=== PATIENT | female | born 1935 | race Caucasian/White ===

== ENCOUNTER 2019-07-03 11:57 | Inpatient (IN) | payer MEDICARE ==
[~2019-07-03] VITALS: Ht 160 cm; Wt 92.2 kg
[2019-07-03] MEDS ORDERED: guaiFENesin 200 MG TAB PO PRN (13:45)
[2019-07-03] MEDS ORDERED: MIRALAX *UNIT DOSE* 17GM PACKET PO PRN (13:45)
[2019-07-03] MEDS ORDERED: IPRATROPIUM 0.5MG/ALBUTEROL 2.5MG INH SOL UD 3ML (DUONEB)(J7620) NEB PRN (13:45)
--- NOTE | 2019-07-03 15:17 | HPEPDOC ---
Program Therapist Note DATE OF ADMISSION: DATE OF SERVICE: TIME OF ADMISSION: Please refer to physician's admission order. SOURCE OF ADMISSION INFORMATION: [facility] CHIEF COMPLAINT: hemorrhagic stroke HISTORY OF PRESENT ILLNESS: 84F pmh HTN, breast cancer, lung cancer, GERD, diverticulosis presented to [facility] 06[facility] with left sided weakness and facial droop with CT showing right basal ganglia bleed and sbp>200. She declined further neurosurgic al evaluation so was not transferred to a higher level of care, but was treated with iv and oral anti-hypertensives. Her bleed was monitored with serial ct scans which showed no change in hematoma size or mass effect. A formal speech eval was not performed and patient refused puree diet despite being counseled on risk of aspiration. She developed bradycardia for which her home dose of atenolol was discontinued and she was started on DVT prophylaxis. She was noted to have a sacral ulcer thought to be due to urinary/bowel incontinence. She was evaluated by therapy, found to have impairments in mobility and ADLs and deemed medically appropriate for discharge to ARU on 07-03-19. REVIEW OF SYSTEMS: The following is a completed review of systems and has been reviewed. Review of systems otherwise unremarkable. PAIN: Patient self reports no pain EYES: No recent vision changes EARS, NOSE, & THROAT: No throat pain, denies dysphagia CARDIOVASCULAR: denies chest pain or palpitations PULMONARY: Denies shortness of breath, +chronic cough GASTROINTESTINAL: Denies constipation/diarrhea GENITOURINARY: denies dysruia, however +incontinence MUSCULOSKELETAL: left sided paresis NEUROLOGICAL: left sided paresis HEMATOLOGICAL: denies easy bruising SKIN: sacral ulcer PSYCHIATRIC: Unremarkable All other review of systems found to be negative. PAST MEDICAL HISTORY: as per HPI PAST SURGICAL HISTORY: Appendectomy, cholecystectomy, left hip replacement, pneumonectomy, hysterectomy ALLERGIES: Please see below. MEDICATIONS: Please see below. FAMILY HISTORY: Lung disease SOCIAL HISTORY: no etoh/illicit drugs/smoking DIET: level 2 and nectar PHYSICAL EXAMINATION: VITAL SIGNS: Please see below. GENERAL: Pleasant and cooperative. No acute distress. obese HEENT: PERRL. Extraocular movements intact. Clear conjunctiva CARDIOVASCULAR: Regular rate and rhythm. No murmurs, rubs, or gallops LUNGS: Clear to auscultation bilaterally. No wheezes. No rhonchi ABDOMEN: Soft, nontender, nondistended. Positive bowel sounds. Normal active bowel sounds NEUROLOGICAL: Alert and oriented times three. Cranial nerves II through XII grossly intact. Sensation grossly intact to light touch in all 4 limbs, with extinction to touch on the left EXTREMITIES: 5\5 strength right upper extremities. 3/5 strength left UE 4-\5 strength right lower extremity. 3/5 strength in left lower extremity. +bilat LE edema with mild erythema of anterior calves SKIN: sacral ulcer in gluteal fold (healed) LABORATORY DATA: Please see below. IMAGING:Imaging documentation personally reviewed by record FUNCTIONAL STATUS: Premorbid: Modified Independent with all activities of daily life as well as mobility with RW On Admission:Mod assist for bed mobility, functional transfers, ambulation, dressing, total for toileting GOALS:Modified independent for bed mobility, functional transfers, ambulation household distances, dressing, toileting, bathing ASSESSMENT:84-year-old F with past medical history of HTN who presents status post right basal ganglia hemorrhagic stroke PLAN: 1. Rehab- PT/OT advance gait and ADL impairments, strenghthen/stretch/maintain ROM all 4 limbs, evaluate for AFO, heel offloaders bilat LE given lymphedema RABBET OPERATOR- swallow and cog- will start patient on level 2 and nectar until seen by RABBET OPERATOR inhouse as no formal swallow eval performed at prior hospital 2. Neuro: s/p right basal ganglia hemorrhagic stroke-c/u statin and BP control for secondary stroke prevention -prozac for motor recovery 3. CArdiac: hx of HTN c/u amlodipine and Cozaar, atenolol on hold due to recent bradycardia -medicine consult to assist in overall management 4. Resp: encourage incentive spirometry, duonebs and and guaifenesin prn 5. GI ppx: protonix 6. DVT ppx: heparin and teds 7. Skin: barrier cream and turn q2h in bed, heel offloaders and Acewraps for lymphedema, optifoam to heels for prevention 8. Pain: tylenol prn 9. Dispo: TBD POST ADMISSION PHYSICIAN EVALUATION: Medical and functional status: Description of medical status, medical assessment: As above. Rehabilitation diagnosis and current and prior cold morbid medical conditions as above. Risk of complications and plans to mitigate them as above. Description of functional status current status is as above. Prior status as above. Status compared to preadmission: There are no clinically significant differences between the patient's current status and the information described on the preadmission screening document. Treatment plan anticipated: Treatment plan is as described above. Required disciplines including physical therapy, occupational therapy, others as noted above. Intensity of services: 3 hours a day, 6 days a week. Special considerations: There are no specific special or safety considerations that would likely preclude immediate implementation of an intensive rehabilitation program or subsequently influence the plan of care. ATTESTATION: Considering all the information above, it is my best judgment that this patient requires intensive rehabilitation therapy as described above and an inpatient hospital environment due to the complexity of nursing, medical, and rehabilitation needs required by the patient. Furthermore, this patient can reasonably be expected to participate in an benefit from an inpatient rehabilitation stay with an interdisciplinary team approach to the delivery of rehabilitation care under the direction and supervision of rehabilitation physician. PROGNOSIS: good ESTIMATED LENGTH OF STAY:18-21 days. PROJECTED DISCHARGE DESTINATION: Home with family support and any durable medical equipment required to increase functional safety and mobility. TIME SPENT COUNSELING AND COORDINATING INITIAL CARE: Greater than 70 minutes. Vital Signs Vital Signs Date Time Temp Pulse Resp B/P (MAP) Pulse Ox O2 Delivery O2 Flow Rate FiO2 5/20/20 15:30 98.0 70 18 154/80 (104) 94 Room Air Home Medications Scheduled Amlodipine Besylate (Amlodipine Besylate) 5 Mg Tablet, 10 MG PO DAILY, (Reported) Cyanocobalamin (Cyanocobalamin Injection) 1,000 Mcg/1 Ml Vial, 1,000 MCG IM QMONTH, (Reported) Esomeprazole Magnesium (Esomeprazole Magnesium) 20 Mg Capsule.dr, 40 MG PO DAILY, (Reported) Heparin Sodium,Porcine/Pf (Heparin 2,000 Unit/2 ml Vial) 1,000 Unit/1 Ml Vial, 5,000 UNIT SC BID, (Reported) STARTED AT [facility] Losartan Potassium (Losartan Potassium) 50 Mg Tablet, 50 MG PO DAILY, (Reported) Sennosides/Docusate Sodium (Senna-S Tablet) 1 Each Tablet, 2 TAB PO BID, (Reported) Scheduled PRN Acetaminophen (Acetaminophen) 325 Mg Tablet, 650 MG PO Q4H PRN for PAIN, (Reported) Dextran/Hypromellose (Genteal Tears 0.1%-0.3% Drop) 15 Ml Drops, 1 DROP OU Q4H PRN for DRY EYES, (Reported) Allergies Coded Allergies: cephalexin (Verified Allergy, Unknown, TONGUE SWELLS, 07/03/19) A-FIB/CHADSVASC A-FIB History Current/History of A-Fib/PAF?: No Current PO Anticoag Therapy: No RAN ESPINOZA MD July 03, 2019 15:17
[2019-07-03 15:30] VITALS: BP 154/80
[2019-07-03] MEDS: guaiFENesin 200 MG TAB PO SCH ×2 (16:00→21:05)
[2019-07-03] MEDS ORDERED: SENN-23 PO (16:05)
[2019-07-03] MEDS ORDERED: CYAN1000VL IM (16:05)
[2019-07-03] MEDS ORDERED: ESOM0.1C PO (16:05)
[2019-07-03] MEDS ORDERED: AMLO5TAB6 PO (16:05)
[2019-07-03] MEDS ORDERED: LOSA50TA88 PO (16:05)
[2019-07-03] MEDS ORDERED: ACET-908 PO (16:07)
[2019-07-03] MEDS ORDERED: [UNRECOGNIZED DRUG - CODE] SC (16:07)
[2019-07-03] MEDS ORDERED: GENT1SOL16 OU (16:08)
[2019-07-03] MEDS: ACETAMINOPHEN TAB 650MG DOSE (2X325MG) PO PRN ×2 (16:45→21:09)
[2019-07-03] MEDS: REMEDY PHYTOPLEX Z-GUARD PASTE 113GM TUBE (FROM STOREROOM PRODUCT) TOP SCH ×2 (16:48→21:07)
[2019-07-03] MEDS ORDERED: POLYVINYL ALCOHOL OPHTH SOLN 15 ML(LIQUITEARS) OU PRN (17:00)
[2019-07-03] MEDS: IPRATROPIUM 0.5MG/ALBUTEROL 2.5MG INH SOL UD 3ML (DUONEB)(J7620) NEB SCH ×2 (17:12→20:04)
[2019-07-03 20:02] VITALS: BP 156/82
[2019-07-03] MEDS ORDERED: SENNA 8.6 MG TAB (SENOKOT) PO SCH (21:00)
[2019-07-03] MEDS: NYSTATIN 100,000 UNITS/GM TOPICAL PWD 15 GM TOP SCH (21:05)
[2019-07-03] MEDS: DOCUSATE SODIUM 100 MG CAP PO SCH (21:05)
[2019-07-03] MEDS: HEPARIN SOD (PORCINE) 5000UNITS/ML VIAL (J1644 PER 1000UNITS) SC SCH (21:06)
[2019-07-04] MEDS: REMEDY PHYTOPLEX Z-GUARD PASTE 113GM TUBE (FROM STOREROOM PRODUCT) TOP SCH ×3 (05:34→18:50)
[2019-07-04 06:00] VITALS: BP 126/71
[2019-07-04 06:32] LABS: BASO # 0.1 10^3/uL (0.0-0.2); BASO % 1.2 % (0.0-1.0); EOS # 0.2 10^3/uL (0.0-0.5); EOS % 2.9 % (0.0-3.0); HEMATOCRIT 40.5 % (36.0-47.0); HEMOGLOBIN 13.6 g/dl (12.0-15.5); LYMPH # 1.6 10^3/uL (1.5-5.0); LYMPH % 30.1 % (24.0-44.0); MEAN CORPUSCULAR HEMOGLOBIN 31.2 pg (27.0-33.0); MEAN CORPUSCULAR HGB CONC 33.6 g/dl (32.0-36.5); MEAN CORPUSCULAR VOLUME 92.9 fl (80.0-96.0); MONO # 0.5 10^3/uL (0.0-0.8); MONO % 10.4 % (0.0-5.0); NEUTROPHILS # 2.9 10^3/uL (1.5-8.5); PLATELET COUNT, AUTOMATED 149 10^3/uL (150-450); RED BLOOD COUNT 4.36 10^6/uL (4.00-5.40); WHITE BLOOD COUNT 5.2 10^3/uL (4.0-10.0)
[2019-07-04 06:58] LABS: ALT/SGPT 21 U/L (12-78); BILIRUBIN,TOTAL 0.6 MG/DL (0.2-1.0); BLOOD UREA NITROGEN 24 MG/DL (7-18); CALCIUM LEVEL 8.8 MG/DL (8.8-10.2); CARBON DIOXIDE LEVEL 23 MEQ/L (21-32); CHLORIDE LEVEL 109 MEQ/L (98-107); CREATININE FOR GFR 0.74 MG/DL (0.55-1.30); GLOMERULAR FILTRATION RATE > 60.0 (>32); GLUCOSE, FASTING 95 MG/DL (70-100); POTASSIUM SERUM 3.9 MEQ/L (3.5-5.1); SODIUM LEVEL 141 MEQ/L (136-145); TOTAL PROTEIN 6.2 GM/DL (6.4-8.2)
[2019-07-04] MEDS: IPRATROPIUM 0.5MG/ALBUTEROL 2.5MG INH SOL UD 3ML (DUONEB)(J7620) NEB SCH ×3 (07:04→19:44)
[2019-07-04] MEDS: FOLIC ACID 1 MG TAB PO SCH (08:36)
[2019-07-04] MEDS: guaiFENesin 200 MG TAB PO SCH ×3 (08:36→20:15)
[2019-07-04] MEDS: DOCUSATE SODIUM 100 MG CAP PO SCH (08:36)
[2019-07-04] MEDS: PANTOPRAZOLE 40MG TAB (PROTONIX) PO SCH (08:36)
[2019-07-04] MEDS: LOSARTAN 50MG TABLET PO SCH (08:37)
[2019-07-04] MEDS: amLODIPine 10 MG TAB PO SCH (08:37)
[2019-07-04] MEDS: FLUoxetine 20 MG CAP PO SCH (08:37)
[2019-07-04] MEDS: ACETAMINOPHEN TAB 650MG DOSE (2X325MG) PO PRN ×4 (08:38→20:17)
[2019-07-04] MEDS: HEPARIN SOD (PORCINE) 5000UNITS/ML VIAL (J1644 PER 1000UNITS) SC SCH ×2 (08:38→20:15)
[2019-07-04] MEDS: NYSTATIN 100,000 UNITS/GM TOPICAL PWD 15 GM TOP SCH ×2 (08:38→20:17)
[2019-07-04] MEDS ORDERED: CYANOCOBALAMIN 500 MCG TAB PO SCH (09:00)
--- NOTE | 2019-07-04 09:57 | IPNPDOC ---
PM&R Progress Note DATE OF SERVICE: July 04, 2019 Nurse Recruiter Progress Note Subjective: Patient reporting she slept well and continues to try using her left arm with its residual strength. REVIEW OF SYSTEMS: The following is a completed review of systems and has been reviewed. Review of systems otherwise unremarkable. PAIN: Patient self reports no pain EYES: No recent vision changes EARS, NOSE, & THROAT: No throat pain, denies dysphagia CARDIOVASCULAR: denies chest pain or palpitations PULMONARY: Denies shortness of breath, +chronic cough GASTROINTESTINAL: Denies constipation/diarrhea GENITOURINARY: denies dysruia, however +incontinence MUSCULOSKELETAL: left sided paresis NEUROLOGICAL: left sided paresis HEMATOLOGICAL: denies easy bruising SKIN: sacral ulcer PSYCHIATRIC: Unremarkable All other review of systems found to be negative. PHYSICAL EXAMINATION: VITAL SIGNS: Please see below. GENERAL: Pleasant and cooperative. No acute distress. obese HEENT: PERRL. Extraocular movements intact. Clear conjunctiva CARDIOVASCULAR: Regular rate and rhythm. No murmurs, rubs, or gallops LUNGS: Clear to auscultation bilaterally. No wheezes. No rhonchi ABDOMEN: Soft, nontender, nondistended. Positive bowel sounds. Normal active bowel sounds NEUROLOGICAL: Alert and oriented times three. Cranial nerves II through XII grossly intact. Sensation grossly intact to light touch in all 4 limbs, with extinction to touch on the left EXTREMITIES: 5\5 strength right upper extremities. 3/5 strength left UE 4-\5 strength right lower extremity. 3/5 strength in left lower extremity. +bilat LE edema with mild erythema of anterior calves SKIN: sacral ulcer in gluteal fold (healed) ASSESSMENT:84-year-old F with past medical history of HTN who presents status post right basal ganglia hemorrhagic stroke PLAN: 1. Rehab- PT/OT advance gait and ADL impairments, strenghthen/stretch/maintain ROM all 4 limbs, evaluate for AFO, heel offloaders bilat LE given lymphedema SHIRRING MACHINE OPERATOR AUTOMATIC- swallow and cog- will start patient on level 2 and nectar until seen by SHIRRING MACHINE OPERATOR AUTOMATIC inhouse as no formal swallow eval performed at prior hospital 2. Neuro: s/p right basal ganglia hemorrhagic stroke-c/u statin and BP control for secondary stroke prevention -prozac for motor recovery 3. CArdiac: hx of HTN c/u amlodipine and Cozaar, atenolol on hold due to recent bradycardia, will c/u Lasix for bilat edema and elevated BPs and low dose metoprolol with parameters -medicine consult to assist in overall management 4. Resp: encourage incentive spirometry, duonebs and and guaifenesin 5. GI ppx: protonix 6. DVT ppx: heparin and teds 7. Skin: barrier cream and turn q2h in bed, heel offloaders and Acewraps for lymphedema, optifoam to heels for prevention 8. Pain: tylenol prn 9. Dispo: TBD Allergies Coded Allergies: cephalexin (Verified Allergy, Unknown, TONGUE SWELLS, 07/03/19) Vital Signs Vital Signs Date Time Temp Pulse Resp B/P (MAP) Pulse Ox O2 Delivery O2 Flow Rate FiO2 07/04/19 08:37 172/78 07/04/19 06:00 97.9 73 17 95 Room Air Laboratory Data CBC/BMP Laboratory Tests 07/04/19 06:15 Labs 24H Laboratory Tests 2 07/03/19 15:25: Coronavirus (COVID-19)(PCR) NEGATIVE 07/04/19 06:15: Immature Granulocyte % (Auto) 0.4, Neutrophils (%) (Auto) 55.0, Lymphocytes (%) (Auto) 30.1, Monocytes (%) (Auto) 10.4H, Eosinophils (%) (Auto) 2.9, Basophils (%) (Auto) 1.2H, Neutrophils # (Auto) 2.9, Lymphocytes # (Auto) 1.6, Monocytes # (Auto) 0.5, Eosinophils # (Auto) 0.2, Basophils # (Auto) 0.1, Nucleated Red Blood Cells % (auto) 0.0, Anion Gap 9, Glomerular Filtration Rate > 60.0, Calciu m Level 8.8, Total Bilirubin 0.6, Aspartate Amino Transf (AST/SGOT) 15, Alanine Aminotransferase (ALT/SGPT) 21, Alkaline Phosphatase 99, Total Protein 6.2L, Albumin 3.0L, Albumin/Globulin Ratio 0.9L Current Medications Current Medications Current Medications Medications (Trade) Dose Ordered Sig/Brenden Route PRN Reason Start Time Stop Time Status Last Admin Dose Admin Acetaminophen (Tylenol Tab) 650 mg Q4HP PRN PO fever/MILD PAIN (PS 1-4) 07/03/19 13:45 07/04/19 08:38 Albuterol/ Ipratropium (Duoneb (Ipr 0.5mg/Alb 2.5mg)) 3 ml Q2HP PRN NEB SOB/WHEEZING 07/03/19 13:45 07/03/19 16:00 DC Albuterol/ Ipratropium (Duoneb (Ipr 0.5mg/Alb 2.5mg)) 3 ml RTID NEB 07/03/19 14:00 07/04/19 07:04 Amlodipine Besylate (Norvasc) 10 mg DAILY PO 07/04/19 09:00 07/04/19 08:37 Artificial Tears (Akwa Tears) 2 drop QID PRN OU DRY EYES 07/03/19 17:00 Cyanocobalamin (Vitamin B12) 1,000 mcg DAILY PO 07/04/19 09:00 07/03/19 16:39 DC Docusate Sodium (Colace) 100 mg BID PO 07/03/19 21:00 07/04/19 08:36 Fluoxetine HCl (PROzac) 20 mg DAILY PO 07/04/19 09:00 07/04/19 08:37 Folic Acid (Folic Acid) 1 mg DAILY PO 07/04/19 09:00 07/04/19 08:36 Guaifenesin (Robitussin Tab) 400 mg Q4HP PRN PO COUGH 07/03/19 13:45 07/03/19 16:00 DC Guaifenesin (Robitussin Tab) 400 mg TID PO 07/03/19 16:00 07/04/19 08:36 Heparin Sodium (Porcine) (Heparin) 5,000 units Q12H SC 07/03/19 21:00 07/04/19 08:38 Home Med (Med Rec Complete!) ASDIRECTED XX 07/03/19 16:15 07/03/19 16:14 DC Losartan Potassium (Cozaar) 50 mg DAILY PO 07/04/19 09:00 07/04/19 08:37 Nystatin (Mycostatin Powder, Nystop) apply to groin BID TOP 07/03/19 21:00 07/04/19 08:38 Pantoprazole Sodium (Protonix) 40 mg DAILY PO 07/04/19 09:00 07/04/19 08:36 Polyethylene Glycol (Miralax) 1 pkt DAILY PRN PO CONSTIPATION 07/03/19 13:45 Senna (Senokot) 1 tab Q PO 07/03/19 21:00 07/03/19 21:05 RAN ESPINOZA MD July 04, 2019 09:57
[2019-07-04] MEDS ORDERED: METOPROLOL TART 25 MG TABLET PO SCH (10:00)
[2019-07-04] MEDS: METOPROLOL TART 12.5 MG PER 1/2 TAB PO SCH ×2 (11:03→20:16)
[2019-07-04] MEDS: FUROSEMIDE 20 MG TAB PO SCH (11:04)
[2019-07-04 14:00] VITALS: BP 120/62
[2019-07-04] MEDS ORDERED: DOCUSATE SODIUM 100 MG CAP PO PRN (16:00)
[2019-07-04] MEDS ORDERED: SENNA 8.6 MG TAB (SENOKOT) PO PRN (16:00)
[2019-07-04] MEDS ORDERED: LOPERAMIDE 2 MG CAPLET PO PRN (16:00)
[2019-07-04 20:00] VITALS: BP 142/86
[2019-07-05] MEDS: REMEDY PHYTOPLEX Z-GUARD PASTE 113GM TUBE (FROM STOREROOM PRODUCT) TOP SCH ×5 (00:17→23:42)
[2019-07-05 06:00] VITALS: BP 145/70
[2019-07-05] MEDS: IPRATROPIUM 0.5MG/ALBUTEROL 2.5MG INH SOL UD 3ML (DUONEB)(J7620) NEB SCH ×4 (07:05→20:00)
[2019-07-05] MEDS: guaiFENesin 200 MG TAB PO SCH ×3 (08:46→20:01)
[2019-07-05] MEDS: LOSARTAN 50MG TABLET PO SCH (08:46)
[2019-07-05] MEDS: FLUoxetine 20 MG CAP PO SCH (08:46)
[2019-07-05] MEDS: METOPROLOL TART 12.5 MG PER 1/2 TAB PO SCH ×2 (08:46→20:28)
[2019-07-05] MEDS: PANTOPRAZOLE 40MG TAB (PROTONIX) PO SCH (08:46)
[2019-07-05] MEDS: FOLIC ACID 1 MG TAB PO SCH (08:46)
[2019-07-05] MEDS: amLODIPine 10 MG TAB PO SCH (08:46)
[2019-07-05] MEDS: HEPARIN SOD (PORCINE) 5000UNITS/ML VIAL (J1644 PER 1000UNITS) SC SCH ×2 (08:47→20:29)
[2019-07-05] MEDS: NYSTATIN 100,000 UNITS/GM TOPICAL PWD 15 GM TOP SCH ×2 (08:47→20:29)
[2019-07-05] MEDS: FUROSEMIDE 20 MG TAB PO SCH (08:47)
[2019-07-05] MEDS: ACETAMINOPHEN TAB 650MG DOSE (2X325MG) PO PRN ×2 (09:50→21:23)
[2019-07-05] MEDS: LIDOCAINE 5% (LIDODERM) PATCH TD SCH (11:44)
[2019-07-05 14:00] VITALS: BP 140/72
[2019-07-05 20:00] VITALS: BP 142/70
[2019-07-05] MEDS: **NOTE PATIENT COMMENT** MISC XX SCH (20:29)
[2019-07-06] MEDS: ACETAMINOPHEN TAB 650MG DOSE (2X325MG) PO PRN ×3 (02:13→22:13)
[2019-07-06] MEDS: REMEDY PHYTOPLEX Z-GUARD PASTE 113GM TUBE (FROM STOREROOM PRODUCT) TOP SCH ×4 (05:50→21:31)
[2019-07-06] MEDS: IPRATROPIUM 0.5MG/ALBUTEROL 2.5MG INH SOL UD 3ML (DUONEB)(J7620) NEB SCH ×3 (08:34→21:24)
[2019-07-06] MEDS: amLODIPine 10 MG TAB PO SCH (10:07)
[2019-07-06] MEDS: FOLIC ACID 1 MG TAB PO SCH (10:07)
[2019-07-06] MEDS: METOPROLOL TART 12.5 MG PER 1/2 TAB PO SCH ×2 (10:07→20:23)
[2019-07-06] MEDS: PANTOPRAZOLE 40MG TAB (PROTONIX) PO SCH (10:07)
[2019-07-06] MEDS: guaiFENesin 200 MG TAB PO SCH ×3 (10:07→20:11)
[2019-07-06] MEDS: LOSARTAN 50MG TABLET PO SCH (10:08)
[2019-07-06] MEDS: FUROSEMIDE 20 MG TAB PO SCH (10:08)
[2019-07-06] MEDS: HEPARIN SOD (PORCINE) 5000UNITS/ML VIAL (J1644 PER 1000UNITS) SC SCH ×2 (10:09→20:25)
[2019-07-06] MEDS: FLUoxetine 20 MG CAP PO SCH (10:09)
[2019-07-06] MEDS: LIDOCAINE 5% (LIDODERM) PATCH TD SCH (10:10)
[2019-07-06] MEDS: NYSTATIN 100,000 UNITS/GM TOPICAL PWD 15 GM TOP SCH ×2 (10:10→20:24)
[2019-07-06 14:00] VITALS: BP 164/80
[2019-07-06 20:00] VITALS: BP 144/62
[2019-07-06] MEDS: **NOTE PATIENT COMMENT** MISC XX SCH (20:26)
[2019-07-07] MEDS: REMEDY PHYTOPLEX Z-GUARD PASTE 113GM TUBE (FROM STOREROOM PRODUCT) TOP SCH ×4 (05:44→20:33)
[2019-07-07 06:46] VITALS: BP 138/66
[2019-07-07] MEDS: IPRATROPIUM 0.5MG/ALBUTEROL 2.5MG INH SOL UD 3ML (DUONEB)(J7620) NEB SCH ×3 (07:24→19:29)
[2019-07-07] MEDS: LIDOCAINE 5% (LIDODERM) PATCH TD SCH (08:11)
[2019-07-07] MEDS: FUROSEMIDE 20 MG TAB PO SCH (08:12)
[2019-07-07] MEDS: FOLIC ACID 1 MG TAB PO SCH (08:12)
[2019-07-07] MEDS: FLUoxetine 20 MG CAP PO SCH (08:12)
[2019-07-07] MEDS: PANTOPRAZOLE 40MG TAB (PROTONIX) PO SCH (08:12)
[2019-07-07] MEDS: guaiFENesin 200 MG TAB PO SCH ×3 (08:12→20:18)
[2019-07-07] MEDS: HEPARIN SOD (PORCINE) 5000UNITS/ML VIAL (J1644 PER 1000UNITS) SC SCH ×2 (08:12→20:17)
[2019-07-07] MEDS: NYSTATIN 100,000 UNITS/GM TOPICAL PWD 15 GM TOP SCH ×2 (08:13→20:18)
[2019-07-07] MEDS: METOPROLOL TART 12.5 MG PER 1/2 TAB PO SCH ×2 (08:27→20:17)
[2019-07-07] MEDS: LOSARTAN 50MG TABLET PO SCH (08:27)
[2019-07-07] MEDS: amLODIPine 10 MG TAB PO SCH (08:27)
[2019-07-07 14:00] VITALS: BP 118/68
[2019-07-07] MEDS: ACETAMINOPHEN TAB 650MG DOSE (2X325MG) PO PRN (17:34)
[2019-07-07 19:39] VITALS: BP 147/64
[2019-07-07] MEDS: **NOTE PATIENT COMMENT** MISC XX SCH (20:19)
[2019-07-08] MEDS: REMEDY PHYTOPLEX Z-GUARD PASTE 113GM TUBE (FROM STOREROOM PRODUCT) TOP SCH ×3 (05:27→17:44)
[2019-07-08 05:59] VITALS: BP 145/66
[2019-07-08] MEDS: IPRATROPIUM 0.5MG/ALBUTEROL 2.5MG INH SOL UD 3ML (DUONEB)(J7620) NEB SCH ×4 (07:13→19:21)
[2019-07-08 07:44] LABS: BASO # 0.1 10^3/uL (0.0-0.2); EOS # 0.2 10^3/uL (0.0-0.5); EOS % 4.8 % (0.0-3.0); HEMATOCRIT 38.4 % (36.0-47.0); HEMOGLOBIN 12.5 g/dl (12.0-15.5); LYMPH # 1.5 10^3/uL (1.5-5.0); LYMPH % 29.8 % (24.0-44.0); MEAN CORPUSCULAR HEMOGLOBIN 30.2 pg (27.0-33.0); MEAN CORPUSCULAR HGB CONC 32.6 g/dl (32.0-36.5); MEAN CORPUSCULAR VOLUME 92.8 fl (80.0-96.0); MONO # 0.6 10^3/uL (0.0-0.8); MONO % 10.9 % (0.0-5.0); NEUTROPHILS # 2.7 10^3/uL (1.5-8.5); NEUTROPHILS % 52.9 % (36.0-66.0); PLATELET COUNT, AUTOMATED 165 10^3/uL (150-450); RED BLOOD COUNT 4.14 10^6/uL (4.00-5.40)
[2019-07-08] MEDS: PANTOPRAZOLE 40MG TAB (PROTONIX) PO SCH (07:48)
[2019-07-08] MEDS: LIDOCAINE 5% (LIDODERM) PATCH TD SCH (07:48)
[2019-07-08] MEDS: amLODIPine 10 MG TAB PO SCH (07:48)
[2019-07-08] MEDS: HEPARIN SOD (PORCINE) 5000UNITS/ML VIAL (J1644 PER 1000UNITS) SC SCH ×2 (07:48→20:22)
[2019-07-08] MEDS: FOLIC ACID 1 MG TAB PO SCH (07:49)
[2019-07-08] MEDS: METOPROLOL TART 12.5 MG PER 1/2 TAB PO SCH ×2 (07:49→20:23)
[2019-07-08] MEDS: FUROSEMIDE 20 MG TAB PO SCH (07:49)
[2019-07-08] MEDS: LOSARTAN 50MG TABLET PO SCH (07:49)
[2019-07-08] MEDS: FLUoxetine 20 MG CAP PO SCH (07:50)
[2019-07-08] MEDS: guaiFENesin 200 MG TAB PO SCH ×3 (07:50→20:23)
[2019-07-08] MEDS: NYSTATIN 100,000 UNITS/GM TOPICAL PWD 15 GM TOP SCH ×2 (07:51→20:23)
[2019-07-08 08:02] LABS: BLOOD UREA NITROGEN 29 MG/DL (7-18); CALCIUM LEVEL 8.8 MG/DL (8.8-10.2); CARBON DIOXIDE LEVEL 24 MEQ/L (21-32); CHLORIDE LEVEL 109 MEQ/L (98-107); CREATININE FOR GFR 0.83 MG/DL (0.55-1.30); GLOMERULAR FILTRATION RATE > 60.0 (>32); GLUCOSE, FASTING 101 MG/DL (70-100); POTASSIUM SERUM 3.4 MEQ/L (3.5-5.1); SODIUM LEVEL 140 MEQ/L (136-145)
[2019-07-08] MEDS: ACETAMINOPHEN TAB 650MG DOSE (2X325MG) PO PRN ×2 (12:39→20:23)
[2019-07-08 14:00] VITALS: BP 147/66
[2019-07-08 19:32] VITALS: BP 110/53
[2019-07-08] MEDS: **NOTE PATIENT COMMENT** MISC XX SCH (20:23)
[2019-07-09 05:46] VITALS: BP 155/66
[2019-07-09] MEDS: REMEDY PHYTOPLEX Z-GUARD PASTE 113GM TUBE (FROM STOREROOM PRODUCT) TOP SCH ×4 (05:51→17:17)
[2019-07-09] MEDS: FLUoxetine 20 MG CAP PO SCH (09:21)
[2019-07-09] MEDS: LIDOCAINE 5% (LIDODERM) PATCH TD SCH (09:21)
[2019-07-09] MEDS: PANTOPRAZOLE 40MG TAB (PROTONIX) PO SCH (09:22)
[2019-07-09] MEDS: METOPROLOL TART 12.5 MG PER 1/2 TAB PO SCH ×2 (09:22→20:45)
[2019-07-09] MEDS: FOLIC ACID 1 MG TAB PO SCH (09:23)
[2019-07-09] MEDS: ACETAMINOPHEN TAB 650MG DOSE (2X325MG) PO PRN ×2 (09:23→20:45)
[2019-07-09] MEDS: amLODIPine 10 MG TAB PO SCH (09:23)
[2019-07-09] MEDS: LOSARTAN 50MG TABLET PO SCH (09:23)
[2019-07-09] MEDS: HEPARIN SOD (PORCINE) 5000UNITS/ML VIAL (J1644 PER 1000UNITS) SC SCH ×2 (09:24→20:44)
[2019-07-09] MEDS: FUROSEMIDE 20 MG TAB PO SCH (09:24)
[2019-07-09] MEDS: guaiFENesin 200 MG TAB PO SCH ×3 (09:24→20:44)
[2019-07-09] MEDS: NYSTATIN 100,000 UNITS/GM TOPICAL PWD 15 GM TOP SCH ×2 (09:25→20:46)
[2019-07-09] MEDS: IPRATROPIUM 0.5MG/ALBUTEROL 2.5MG INH SOL UD 3ML (DUONEB)(J7620) NEB SCH ×3 (11:44→21:19)
[2019-07-09 11:45] LABS: CALCIUM LEVEL 9.3 MG/DL (8.8-10.2); CREATININE FOR GFR 0.95 MG/DL (0.55-1.30); GLOMERULAR FILTRATION RATE 59.5 (>32); POTASSIUM SERUM 3.7 MEQ/L (3.5-5.1)
[2019-07-09 14:00] VITALS: BP 124/62
--- NOTE | 2019-07-09 15:17 | IPNPDOC ---
PM&R Progress Note DATE OF SERVICE: July 09, 2019 Senior Data Analyst Progress Note Subjective: Patient reporting she feels well today, but is tired. She reports she is sleeping well, but that therapy is a lot of work. REVIEW OF SYSTEMS: The following is a completed review of systems and has been reviewed. Review of systems otherwise unremarkable. PAIN: Patient self reports no pain EYES: No recent vision changes EARS, NOSE, & THROAT: No throat pain, denies dysphagia CARDIOVASCULAR: denies chest pain or palpitations PULMONARY: Denies shortness of breath, +chronic cough GASTROINTESTINAL: Denies constipation/diarrhea GENITOURINARY: denies dysruia, however +incontinence MUSCULOSKELETAL: left sided paresis NEUROLOGICAL: left sided paresis HEMATOLOGICAL: denies easy bruising SKIN: sacral ulcer PSYCHIATRIC: Unremarkable All other review of systems found to be negative. PHYSICAL EXAMINATION: VITAL SIGNS: Please see below. GENERAL: Pleasant and cooperative. No acute distress. obese HEENT: PERRL. Extraocular movements intact. Clear conjunctiva CARDIOVASCULAR: Regular rate and rhythm. No murmurs, rubs, or gallops LUNGS: Clear to auscultation bilaterally. No wheezes. No rhonchi ABDOMEN: Soft, nontender, nondistended. Positive bowel sounds. Normal active bowel sounds NEUROLOGICAL: Alert and oriented times three. Cranial nerves II through XII grossly intact. Sensation grossly intact to light touch in all 4 limbs, with extinction to touch on the left EXTREMITIES: 5\5 strength right upper extremities. 3/5 strength left UE 4-\5 strength right lower extremity. 3/5 strength in left lower extremity. +bilat LE edema with mild erythema of anterior calves SKIN: sacral ulcer in gluteal fold (healed) ASSESSMENT:84-year-old F with past medical history of HTN who presents status post right basal ganglia hemorrhagic stroke PLAN: 1. Rehab- PT/OT advance gait and ADL impairments, strengthen/stretch/maintain ROM all 4 limbs, evaluate for AFO, heel offloaders bilat LE given lymphedema ELECTRICIAN OFFICE- swallow and cog- advanced to level 3 and thins 2. Neuro: s/p right basal ganglia hemorrhagic stroke-c/u statin and BP control for secondary stroke prevention -prozac for motor recovery 3. CArdiac: hx of HTN c/u amlodipine and Cozaar, atenolol on hold due to recent bradycardia, will c/u Lasix for bilat edema and elevated BPs and low dose met oprolol with parameters -medicine consult to assist in overall management 4. Resp: encourage incentive spirometry, duonebs and and guaifenesin 5. GI ppx: protonix 6. DVT ppx: heparin and teds 7. Skin: barrier cream and turn q2h in bed, heel offloaders and Acewraps for lymphedema, optifoam to heels for prevention 8. Pain: tylenol prn 9. Dispo: TBD Allergies Coded Allergies: cephalexin (Verified Allergy, Unknown, TONGUE SWELLS, 07/03/19) Vital Signs Vital Signs Date Time Temp Pulse Resp B/P (MAP) Pulse Ox O2 Delivery O2 Flow Rate FiO2 07/09/19 14:00 97.6 65 18 124/62 (82) 95 Room Air Laboratory Data CBC/BMP Laboratory Tests 07/09/19 10:24 Labs 24H Laboratory Tests 2 07/09/19 10:24: Anion Gap 8, Glomerular Filtration Rate 59.5, Calcium Level 9.3 Current Medications Current Medications Current Medications Medications (Trade) Dose Ordered Sig/Brenden Route PRN Reason Start Time Stop Time Status Last Admin Dose Admin Acetaminophen (Tylenol Tab) 650 mg Q4HP PRN PO fever/MILD PAIN (PS 1-4) 07/03/19 13:45 07/09/19 09:23 Albuterol/ Ipratropium (Duoneb (Ipr 0.5mg/Alb 2.5mg)) 3 ml Q2HP PRN NEB SOB/WHEEZING 07/03/19 13:45 07/03/19 16:00 DC Albuterol/ Ipratropium (Duoneb (Ipr 0.5mg/Alb 2.5mg)) 3 ml RTID NEB 07/03/19 14:00 07/09/19 15:00 Amlodipine Besylate (Norvasc) 10 mg DAILY PO 07/04/19 09:00 07/09/19 09:23 Artificial Tears (Akwa Tears) 2 drop QID PRN OU DRY EYES 07/03/19 17:00 Cyanocobalamin (Vitamin B12) 1,000 mcg DAILY PO 07/04/19 09:00 07/03/19 16:39 DC Docusate Sodium (Colace) 100 mg BID PO 07/03/19 21:00 07/04/19 15:50 DC 07/04/19 08:36 Docusate Sodium (Colace) 100 mg BID PO 07/09/19 21:00 Docusate Sodium (Colace) 100 mg BIDP PRN PO CONSTIPATION 07/04/19 16:00 07/09/19 15:14 DC 07/07/19 20:17 Fluoxetine HCl (PROzac) 20 mg DAILY PO 07/04/19 09:00 07/09/19 09:21 Folic Acid (Folic Acid) 1 mg DAILY PO 07/04/19 09:00 07/09/19 09:23 Furosemide (Lasix) 20 mg DAILY PO 07/04/19 10:00 07/09/19 09:24 Guaifenesin (Robitussin Tab) 400 mg Q4HP PRN PO COUGH 07/03/19 13:45 07/03/19 16:00 DC Guaifenesin (Robitussin Tab) 400 mg TID PO 07/03/19 16:00 07/09/19 09:24 Heparin Sodium (Porcine) (Heparin) 5,000 units Q12H SC 07/03/19 21:00 07/09/19 09:24 Home Med (Med Rec Complete!) ASDIRECTED XX 07/03/19 16:15 07/03/19 16:14 DC Lidocaine (Lidoderm Patch) 1 patch DAILY TD 07/05/19 09:00 07/09/19 09:21 Loperamide HCl (Imodium) 2 mg ASDIRECTED PRN PO DIARRHEA 07/04/19 16:00 07/04/19 16:32 Losartan Potassium (Cozaar) 50 mg DAILY PO 07/04/19 09:00 07/09/19 09:23 Metoprolol Tartrate (Lopressor) 12.5 mg BID PO 07/04/19 09:00 07/09/19 09:22 Metoprolol Tartrate (Lopressor) 25 mg BID PO 07/04/19 10:00 07/04/19 09:55 DC Non-Formulary Medication ( See Comment Field Below ) REMOVE LIDODERM PATCH DAILY@21 XX 07/05/19 21:00 07/08/19 20:23 Nystatin (Mycostatin Powder, Nystop) apply to groin BID TOP 07/03/19 21:00 07/09/19 09:25 Pantoprazole Sodium (Protonix) 40 mg DAILY PO 07/04/19 09:00 07/09/19 09:22 Polyethylene Glycol (Miralax) 1 pkt DAILY PRN PO CONSTIPATION 07/03/19 13:45 Senna (Senokot) 1 tab QHS PO 07/03/19 21:00 07/04/19 15:50 DC 07/03/19 21:05 Senna (Senokot) 1 tab QHS PO 07/09/19 21:00 Senna (Senokot) 1 tab QHSP PRN PO CONSTIPATION 07/04/19 16:00 07/09/19 15:14 DC 07/07/19 20:18 RAN ESPINOZA MD July 09, 2019 15:17
[2019-07-09] MEDS: CHLORHEXIDINE GLUCONATE 0.12 % 15ML UDC (PERIDEX ORAL RINSE) XX SCH ×2 (17:16→20:43)
[2019-07-09 20:00] VITALS: BP 126/71
[2019-07-09] MEDS: DOCUSATE SODIUM 100 MG CAP PO SCH (20:44)
[2019-07-09] MEDS: SENNA 8.6 MG TAB (SENOKOT) PO SCH (20:45)
[2019-07-09] MEDS: **NOTE PATIENT COMMENT** MISC XX SCH (20:46)
[2019-07-10] MEDS: REMEDY PHYTOPLEX Z-GUARD PASTE 113GM TUBE (FROM STOREROOM PRODUCT) TOP SCH ×5 (00:07→21:16)
[2019-07-10 06:00] VITALS: BP 133/60
[2019-07-10 06:21] LABS: BASO % 0.7 % (0.0-1.0); EOS # 0.3 10^3/uL (0.0-0.5); EOS % 5.6 % (0.0-3.0); HEMOGLOBIN 12.4 g/dl (12.0-15.5); LYMPH # 1.8 10^3/uL (1.5-5.0); LYMPH % 31.8 % (24.0-44.0); MEAN CORPUSCULAR HEMOGLOBIN 30.1 pg (27.0-33.0); MEAN CORPUSCULAR HGB CONC 32.6 g/dl (32.0-36.5); MEAN CORPUSCULAR VOLUME 92.2 fl (80.0-96.0); MONO # 0.6 10^3/uL (0.0-0.8); MONO % 10.2 % (0.0-5.0); NEUTROPHILS # 2.8 10^3/uL (1.5-8.5); PLATELET COUNT, AUTOMATED 146 10^3/uL (150-450); RED BLOOD COUNT 4.12 10^6/uL (4.00-5.40); WHITE BLOOD COUNT 5.5 10^3/uL (4.0-10.0)
[2019-07-10 06:36] LABS: BLOOD UREA NITROGEN 30 MG/DL (7-18); CALCIUM LEVEL 8.7 MG/DL (8.8-10.2); CARBON DIOXIDE LEVEL 27 MEQ/L (21-32); CHLORIDE LEVEL 108 MEQ/L (98-107); CREATININE FOR GFR 0.78 MG/DL (0.55-1.30); GLOMERULAR FILTRATION RATE > 60.0 (>32); GLUCOSE, FASTING 99 MG/DL (70-100); POTASSIUM SERUM 3.7 MEQ/L (3.5-5.1); SODIUM LEVEL 139 MEQ/L (136-145)
[2019-07-10] MEDS: IPRATROPIUM 0.5MG/ALBUTEROL 2.5MG INH SOL UD 3ML (DUONEB)(J7620) NEB SCH ×3 (07:27→20:43)
[2019-07-10] MEDS: guaiFENesin 200 MG TAB PO SCH ×3 (08:46→20:51)
[2019-07-10] MEDS: FLUoxetine 20 MG CAP PO SCH (08:47)
[2019-07-10] MEDS: PANTOPRAZOLE 40MG TAB (PROTONIX) PO SCH (08:47)
[2019-07-10] MEDS: METOPROLOL TART 12.5 MG PER 1/2 TAB PO SCH ×2 (08:47→20:51)
[2019-07-10] MEDS: LOSARTAN 50MG TABLET PO SCH (08:47)
[2019-07-10] MEDS: DOCUSATE SODIUM 100 MG CAP PO SCH ×2 (08:47→20:51)
[2019-07-10] MEDS: amLODIPine 10 MG TAB PO SCH (08:47)
[2019-07-10] MEDS: FUROSEMIDE 20 MG TAB PO SCH (08:47)
[2019-07-10] MEDS: FOLIC ACID 1 MG TAB PO SCH (08:47)
[2019-07-10] MEDS: LIDOCAINE 5% (LIDODERM) PATCH TD SCH (08:48)
[2019-07-10] MEDS: HEPARIN SOD (PORCINE) 5000UNITS/ML VIAL (J1644 PER 1000UNITS) SC SCH ×2 (08:48→20:51)
[2019-07-10] MEDS: CHLORHEXIDINE GLUCONATE 0.12 % 15ML UDC (PERIDEX ORAL RINSE) XX SCH ×3 (08:48→20:51)
[2019-07-10] MEDS: NYSTATIN 100,000 UNITS/GM TOPICAL PWD 15 GM TOP SCH ×2 (08:48→20:51)
[2019-07-10 14:00] VITALS: BP 132/78
--- NOTE | 2019-07-10 17:10 | IPNPDOC ---
PM&R Progress Note DATE OF SERVICE: July 10, 2019 Call Center Team Leader Progress Note Subjective: Patient reporting she worked on standing today and that she is feeling stronger. She denies fevers or chills. REVIEW OF SYSTEMS: The following is a completed review of systems and has been reviewed. Review of systems otherwise unremarkable. PAIN: Patient self reports no pain EYES: No recent vision changes EARS, NOSE, & THROAT: No throat pain, denies dysphagia CARDIOVASCULAR: denies chest pain or palpitations PULMONARY: Denies shortness of breath, +chronic cough GASTROINTESTINAL: Denies constipation/diarrhea GENITOURINARY: denies dysuria, however +incontinence MUSCULOSKELETAL: left sided paresis NEUROLOGICAL: left sided paresis HEMATOLOGICAL: denies easy bruising SKIN: sacral ulcer PSYCHIATRIC: Unremarkable All other review of systems found to be negative. PHYSICAL EXAMINATION: VITAL SIGNS: Please see below. GENERAL: Pleasant and cooperative. No acute distress. obese HEENT: PERRL. Extraocular movements intact. Clear conjunctiva CARDIOVASCULAR: Regular rate and rhythm. No murmurs, rubs, or gallops LUNGS: Clear to auscultation bilaterally. No wheezes. No rhonchi ABDOMEN: Soft, nontender, nondistended. Positive bowel sounds. Normal active bowel sounds NEUROLOGICAL: Alert and oriented times three. Cranial nerves II through XII grossly intact. Sensation grossly intact to light touch in all 4 limbs, with extinction to touch on the left EXTREMITIES: 5\5 strength right upper extremities. 3/5 strength left UE 4-\5 strength right lower extremity. 3/5 strength in left lower extremity. +bilat LE edema with mild erythema of anterior calves SKIN: sacral ulcer in gluteal fold (healed) ASSESSMENT:84-year-old F with past medical history of HTN who presents status post right basal ganglia hemorrhagic stroke PLAN: 1. 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 Neuro: s/p right basal ganglia hemorrhagic stroke-c/u statin and BP control for secondary stroke prevention -prozac for motor recovery 3. C[place]diac: hx of HTN c/u amlodipine and Cozaar, atenolol on hold due to recent bradycardia, will c/u Lasix for bilat edema and elevated BPs and low dose metoprolol with parameters- BPs improving -medicine consult to assist in overall management 4. Resp: encourage incentive spirometry, duonebs and and guaifenesin 5. GI ppx: protonix 6. DVT ppx: heparin and teds 7. Skin: barrier cream and turn q2h in bed, heel offloaders and Acewraps for lymphedema, optifoam to heels for prevention 8. Pain: tylenol prn 9. Dispo: TBD Allergies Coded Allergies: cephalexin (Verified Allergy, Unknown, TONGUE SWELLS, 07/03/19) Vital Signs Vital Signs Date Time Temp Pulse Resp B/P (MAP) Pulse Ox O2 Delivery O2 Flow Rate FiO2 07/10/19 14:00 96.7 72 19 132/78 (96) 96 Room Air Laboratory Data CBC/BMP Laboratory Tests 07/10/19 05:50 Labs 24H Laboratory Tests 2 07/10/19 05:50: Immature Granulocyte % (Auto) 0.7, Neutrophils (%) (Auto) 51.0, Lymphocytes (%) (Auto) 31.8, Monocytes (%) (Auto) 10.2H, Eosinophils (%) (Auto) 5.6H, Basophils (%) (Auto) 0.7, Neutrophils # (Auto) 2.8, Lymphocytes # (Auto) 1.8, Monocytes # (Auto) 0.6, Eosinophils # (Auto) 0.3, Basophils # (Auto) 0.0, Nucleated Red Blood Cells % (auto) 0.0, Anion Gap 4L, Glomerular Filtration Rate > 60.0, Calcium Level 8.7L Current Medications Current Medications Current Medications Medications (Trade) Dose Ordered Sig/Brenden Route PRN Reason Start Time Stop Time Status Last Admin Dose Admin Acetaminophen (Tylenol Tab) 650 mg Q4HP PRN PO fever/MILD PAIN (PS 1-4) 07/03/19 13:45 07/09/19 20:45 Albuterol/ Ipratropium (Duoneb (Ipr 0.5mg/Alb 2.5mg)) 3 ml Q2HP PRN NEB SOB/WHEEZING 07/03/19 13:45 07/03/19 16:00 DC Albuterol/ Ipratropium (Duoneb (Ipr 0.5mg/Alb 2.5mg)) 3 ml RTID NEB 07/03/19 14:00 07/10/19 13:15 Amlodipine Besylate (Norvasc) 10 mg DAILY PO 07/04/19 09:00 07/10/19 08:47 Artificial Tears (Akwa Tears) 2 drop QID PRN OU DRY EYES 07/03/19 17:00 Chlorhexidine Gluconate (Peridex Oral Rinse) 15 ml TID XX 07/09/19 16:00 07/10/19 08:48 Cyanocobalamin (Vitamin B12) 1,000 mcg DAILY PO 07/04/19 09:00 07/03/19 16:39 DC Docusate Sodium (Colace) 100 mg BID PO 07/03/19 21:00 07/04/19 15:50 DC 07/04/19 08:36 Docusate Sodium (Colace) 100 mg BID PO 07/09/19 21:00 07/09/19 20:44 Docusate Sodium (Colace) 100 mg BIDP PRN PO CONSTIPATION 07/04/19 16:00 07/09/19 15:14 DC 07/07/19 20:17 Fluoxetine HCl (PROzac) 20 mg DAILY PO 07/04/19 09:00 07/10/19 08:47 Folic Acid (Folic Acid) 1 mg DAILY PO 07/04/19 09:00 07/10/19 08:47 Furosemide (Lasix) 20 mg DAILY PO 07/04/19 10:00 07/10/19 08:47 Guaifenesin (Robitussin Tab) 400 mg Q4HP PRN PO COUGH 07/03/19 13:45 07/03/19 16:00 DC Guaifenesin (Robitussin Tab) 400 mg TID PO 07/03/19 16:00 07/10/19 08:46 Heparin Sodium (Porcine) (Heparin) 5,000 units Q12H SC 07/03/19 21:00 07/10/19 08:48 Home Med (Med Rec Complete!) ASDIRECTED XX 07/03/19 16:15 07/03/19 16:14 DC Lidocaine (Lidoderm Patch) 1 patch DAILY TD 07/05/19 09:00 07/10/19 08:48 Loperamide HCl (Imodium) 2 mg ASDIRECTED PRN PO DIARRHEA 07/04/19 16:00 07/04/19 16:32 Losartan Potassium (Cozaar) 50 mg DAILY PO 07/04/19 09:00 07/10/19 08:47 Metoprolol Tartrate (Lopressor) 12.5 mg BID PO 07/04/19 09:00 07/10/19 08:47 Metoprolol Tartrate (Lopressor) 25 mg BID PO 07/04/19 10:00 07/04/19 09:55 DC Non-Formulary Medication ( See Comment Field Below ) REMOVE LIDODERM PATCH DAILY@21 XX 07/05/19 21:00 07/09/19 20:46 Nystatin (Mycostatin Powder, Nystop) apply to groin BID TOP 07/03/19 21:00 07/10/19 08:48 Pantoprazole Sodium (Protonix) 40 mg DAILY PO 07/04/19 09:00 07/10/19 08:47 Polyethylene Glycol (Miralax) 1 pkt DAILY PRN PO CONSTIPATION 07/03/19 13:45 Senna (Senokot) 1 tab QHS PO 07/03/19 21:00 07/04/19 15:50 DC 07/03/19 21:05 Senna (Senokot) 1 tab QHS PO 07/09/19 21:00 07/09/19 20:45 Senna (Senokot) 1 tab QHSP PRN PO CONSTIPATION 07/04/19 16:00 07/09/19 15:14 DC 07/07/19 20:18 RAN ESPINOZA MD July 10, 2019 17:10
[2019-07-10] MEDS: ACETAMINOPHEN TAB 650MG DOSE (2X325MG) PO PRN (18:34)
[2019-07-10 19:58] VITALS: BP 133/60
[2019-07-10] MEDS: SENNA 8.6 MG TAB (SENOKOT) PO SCH (20:51)
[2019-07-10] MEDS: **NOTE PATIENT COMMENT** MISC XX SCH (20:52)
[2019-07-11] MEDS: REMEDY PHYTOPLEX Z-GUARD PASTE 113GM TUBE (FROM STOREROOM PRODUCT) TOP SCH ×4 (05:58→20:35)
[2019-07-11 06:00] VITALS: BP 122/66
[2019-07-11] MEDS: ACETAMINOPHEN TAB 650MG DOSE (2X325MG) PO PRN (06:47)
[2019-07-11] MEDS: IPRATROPIUM 0.5MG/ALBUTEROL 2.5MG INH SOL UD 3ML (DUONEB)(J7620) NEB SCH ×3 (07:16→19:44)
[2019-07-11] MEDS: DOCUSATE SODIUM 100 MG CAP PO SCH ×3 (09:00→20:34)
[2019-07-11] MEDS: LOSARTAN 50MG TABLET PO SCH (09:03)
[2019-07-11] MEDS: METOPROLOL TART 12.5 MG PER 1/2 TAB PO SCH ×2 (09:04→20:34)
[2019-07-11] MEDS: PANTOPRAZOLE 40MG TAB (PROTONIX) PO SCH (09:04)
[2019-07-11] MEDS: FLUoxetine 20 MG CAP PO SCH (09:04)
[2019-07-11] MEDS: amLODIPine 10 MG TAB PO SCH (09:04)
[2019-07-11] MEDS: FUROSEMIDE 20 MG TAB PO SCH (09:04)
[2019-07-11] MEDS: FOLIC ACID 1 MG TAB PO SCH (09:04)
[2019-07-11] MEDS: guaiFENesin 200 MG TAB PO SCH ×3 (09:04→20:34)
[2019-07-11] MEDS: CHLORHEXIDINE GLUCONATE 0.12 % 15ML UDC (PERIDEX ORAL RINSE) XX SCH ×3 (09:05→20:35)
[2019-07-11] MEDS: NYSTATIN 100,000 UNITS/GM TOPICAL PWD 15 GM TOP SCH ×2 (09:05→20:35)
[2019-07-11] MEDS: HEPARIN SOD (PORCINE) 5000UNITS/ML VIAL (J1644 PER 1000UNITS) SC SCH ×2 (09:05→20:35)
[2019-07-11] MEDS: LIDOCAINE 5% (LIDODERM) PATCH TD SCH (09:06)
--- NOTE | 2019-07-11 11:31 | IPNPDOC ---
PM&R Progress Note DATE OF SERVICE: July 11, 2019 Ict Developer Progress Note Subjective: Patient states she was up all night coughing, but denies fevers or chills. REVIEW OF SYSTEMS: The following is a completed review of systems and has been reviewed. Review of systems otherwise unremarkable. PAIN: Patient self reports no pain EYES: No recent vision changes EARS, NOSE, & THROAT: No throat pain, denies dysphagia CARDIOVASCULAR: denies chest pain or palpitations PULMONARY: Denies shortness of breath, +chronic cough GASTROINTESTINAL: Denies constipation/diarrhea GENITOURINARY: denies dysuria, however +incontinence MUSCULOSKELETAL: left sided paresis NEUROLOGICAL: left sided paresis HEMATOLOGICAL: denies easy bruising SKIN: sacral ulcer PSYCHIATRIC: Unremarkable All other review of systems found to be negative. PHYSICAL EXAMINATION: VITAL SIGNS: Please see below. GENERAL: Pleasant and cooperative. No acute distress. obese HEENT: PERRL. Extraocular movements intact. Clear conjunctiva CARDIOVASCULAR: Regular rate and rhythm. No murmurs, rubs, or gallops LUNGS: Clear to auscultation bilaterally. No wheezes. No rhonchi ABDOMEN: Soft, nontender, nondistended. Positive bowel sounds. Normal active bowel sounds NEUROLOGICAL: Alert and oriented times three. Cranial nerves II through XII grossly intact. Sensation grossly intact to light touch in all 4 limbs, with extinction to touch on the left EXTREMITIES: 5\5 strength right upper extremities. 3/5 strength left UE 4-\5 strength right lower extremity. 3/5 strength in left lower extremity. +bilat LE edema with mild erythema of anterior calves SKIN: sacral ulcer in gluteal fold (healed) ASSESSMENT:84-year-old F with past medical history of HTN who presents status post right basal ganglia hemorrhagic stroke PLAN: 1. 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 Neuro: s/p right basal ganglia hemorrhagic stroke-c/u statin and BP control for secondary stroke prevention -prozac for motor recovery 3. Cardiac: hx of HTN c/u amlodipine and Cozaar, atenolol on hold due to recent bradycardia, will c/u Lasix for bilat edema and elevated BPs and low dose metoprolol with parameters- BPs improving -medicine consult to assist in overall management 4. Resp: encourage incentive spirometry, duonebs and and guaifenesin -patient with chronic cough, however states she was up all night coughing, will order CXR to rule infiltrate 5. GI ppx: protonix 6. DVT ppx: heparin and teds 7. Skin: barrier cream and turn q2h in bed, heel offloaders and Acewraps for lymphedema, optifoam to heels for prevention 8. Pain: tylenol prn 9. Dispo: TBD Allergies Coded Allergies: cephalexin (Verified Allergy, Unknown, TONGUE SWELLS, 07/03/19) Vital Signs Vital Signs Date Time Temp Pulse Resp B/P (MAP) Pulse Ox O2 Delivery O2 Flow Rate FiO2 07/11/19 09:04 70 152/69 07/11/19 06:00 97.4 16 94 Room Air Current Medications Current Medications Current Medications Medications (Trade) Dose Ordered Sig/Brenden Route PRN Reason Start Time Stop Time Status Last Admin Dose Admin Acetaminophen (Tylenol Tab) 650 mg Q4HP PRN PO fever/MILD PAIN (PS 1-4) 07/03/19 13:45 07/11/19 06:47 Albuterol/ Ipratropium (Duoneb (Ipr 0.5mg/Alb 2.5mg)) 3 ml Q2HP PRN NEB SOB/WHEEZING 07/03/19 13:45 07/03/19 16:00 DC Albuterol/ Ipratropium (Duoneb (Ipr 0.5mg/Alb 2.5mg)) 3 ml RTID NEB 07/03/19 14:00 07/11/19 07:16 Amlodipine Besylate (Norvasc) 10 mg DAILY PO 07/04/19 09:00 07/11/19 09:04 Artificial Tears (Akwa Tears) 2 drop QID PRN OU DRY EYES 07/03/19 17:00 Chlorhexidine Gluconate (Peridex Oral Rinse) 15 ml TID XX 07/09/19 16:00 07/11/19 09:05 Cyanocobalamin (Vitamin B12) 1,000 mcg DAILY PO 07/04/19 09:00 07/03/19 16:39 DC Docusate Sodium (Colace) 100 mg BID PO 07/03/19 21:00 07/04/19 15:50 DC 07/04/19 08:36 Docusate Sodium (Colace) 100 mg BID PO 07/09/19 21:00 07/10/19 20:51 Docusate Sodium (Colace) 100 mg BIDP PRN PO CONSTIPATION 07/04/19 16:00 07/09/19 15:14 DC 07/07/19 20:17 Fluoxetine HCl (PROzac) 20 mg DAILY PO 07/04/19 09:00 07/11/19 09:04 Folic Acid (Folic Acid) 1 mg DAILY PO 07/04/19 09:00 07/11/19 09:04 Furosemide (Lasix) 20 mg DAILY PO 07/04/19 10:00 07/11/19 09:04 Guaifenesin (Robitussin Tab) 400 mg Q4HP PRN PO COUGH 07/03/19 13:45 07/03/19 16:00 DC Guaifenesin (Robitussin Tab) 400 mg TID PO 07/03/19 16:00 07/11/19 09:04 Heparin Sodium (Porcine) (Heparin) 5,000 units Q12H SC 07/03/19 21:00 07/11/19 09:05 Home Med (Med Rec Complete!) ASDIRECTED XX 07/03/19 16:15 07/03/19 16:14 DC Lidocaine (Lidoderm Patch) 1 patch DAILY TD 07/05/19 09:00 07/11/19 09:06 Loperamide HCl (Imodium) 2 mg ASDIRECTED PRN PO DIARRHEA 07/04/19 16:00 07/04/19 16:32 Losartan Potassium (Cozaar) 50 mg DAILY PO 07/04/19 09:00 07/11/19 09:03 Metoprolol Tartrate (Lopressor) 12.5 mg BID PO 07/04/19 09:00 07/11/19 09:04 Metoprolol Tartrate (Lopressor) 25 mg BID PO 07/04/19 10:00 07/04/19 09:55 DC Non-Formulary Medication ( See Comment Field Below ) REMOVE LIDODERM PATCH DAILY@21 XX 07/05/19 21:00 07/10/19 20:52 Nystatin (Mycostatin Powder, Nystop) apply to groin BID TOP 07/03/19 21:00 07/11/19 09:05 Pantoprazole Sodium (Protonix) 40 mg DAILY PO 07/04/19 09:00 07/11/19 09:04 Polyethylene Glycol (Miralax) 1 pkt DAILY PRN PO CONSTIPATION 07/03/19 13:45 Senna (Senokot) 1 tab QHS PO 07/03/19 21:00 07/04/19 15:50 DC 07/03/19 21:05 Senna (Senokot) 1 tab QHS PO 07/09/19 21:00 07/10/19 20:51 Senna (Senokot) 1 tab QHSP PRN PO CONSTIPATION 07/04/19 16:00 07/09/19 15:14 DC 07/07/19 20:18 RAN ESPINOZA MD July 11, 2019 11:31
[2019-07-11 14:00] VITALS: BP 132/66
--- NOTE | 2019-07-11 17:22 | REP ---
CHEST X-RAY: TWO VIEWS. HISTORY: Cough. No comparison study. FINDINGS: There are post thoracotomy changes with interrupted rib sutures on the right. The lungs are well inflated and free of focal infiltrate. Pleural angles are sharp. The heart is enlarged. The thoracic aorta is tortuous. There are surgical clips in the upper abdomen on the right. IMPRESSION: Cardiomegaly. Otherwise no acute disease. Post thoracotomy changes on the right. Electronically Signed by Ramiro Soto MD 07/12/2019 09:11 A
[2019-07-11 20:00] VITALS: BP 144/78
[2019-07-11] MEDS: SENNA 8.6 MG TAB (SENOKOT) PO SCH (20:35)
[2019-07-11] MEDS: **NOTE PATIENT COMMENT** MISC XX SCH (20:42)
[2019-07-12 05:57] VITALS: BP 122/64
[2019-07-12] MEDS: REMEDY PHYTOPLEX Z-GUARD PASTE 113GM TUBE (FROM STOREROOM PRODUCT) TOP SCH ×4 (06:00→20:26)
[2019-07-12 06:52] LABS: BASO # 0.1 10^3/uL (0.0-0.2); EOS # 0.4 10^3/uL (0.0-0.5); EOS % 5.1 % (0.0-3.0); HEMATOCRIT 37.7 % (36.0-47.0); HEMOGLOBIN 12.5 g/dl (12.0-15.5); LYMPH # 1.6 10^3/uL (1.5-5.0); MEAN CORPUSCULAR HEMOGLOBIN 30.8 pg (27.0-33.0); MEAN CORPUSCULAR HGB CONC 33.2 g/dl (32.0-36.5); MEAN CORPUSCULAR VOLUME 92.9 fl (80.0-96.0); MONO # 0.6 10^3/uL (0.0-0.8); MONO % 9.1 % (0.0-5.0); NEUTROPHILS # 4.2 10^3/uL (1.5-8.5); NEUTROPHILS % 60.9 % (36.0-66.0); PLATELET COUNT, AUTOMATED 170 10^3/uL (150-450); RED BLOOD COUNT 4.06 10^6/uL (4.00-5.40); WHITE BLOOD COUNT 6.8 10^3/uL (4.0-10.0)
[2019-07-12 07:18] LABS: BLOOD UREA NITROGEN 33 MG/DL (7-18); CARBON DIOXIDE LEVEL 28 MEQ/L (21-32); CHLORIDE LEVEL 107 MEQ/L (98-107); CREATININE FOR GFR 0.89 MG/DL (0.55-1.30); GLOMERULAR FILTRATION RATE > 60.0 (>32); GLUCOSE, FASTING 98 MG/DL (70-100); POTASSIUM SERUM 3.6 MEQ/L (3.5-5.1); SODIUM LEVEL 140 MEQ/L (136-145)
[2019-07-12] MEDS: guaiFENesin 200 MG TAB PO SCH ×3 (08:03→20:23)
[2019-07-12] MEDS: LOSARTAN 50MG TABLET PO SCH (08:04)
[2019-07-12] MEDS: PANTOPRAZOLE 40MG TAB (PROTONIX) PO SCH (08:04)
[2019-07-12] MEDS: DOCUSATE SODIUM 100 MG CAP PO SCH ×2 (08:04→20:22)
[2019-07-12] MEDS: FOLIC ACID 1 MG TAB PO SCH (08:04)
[2019-07-12] MEDS: FLUoxetine 20 MG CAP PO SCH (08:04)
[2019-07-12] MEDS: FUROSEMIDE 20 MG TAB PO SCH (08:04)
[2019-07-12] MEDS: HEPARIN SOD (PORCINE) 5000UNITS/ML VIAL (J1644 PER 1000UNITS) SC SCH ×2 (08:05→20:24)
[2019-07-12] MEDS: METOPROLOL TART 12.5 MG PER 1/2 TAB PO SCH ×2 (08:05→20:23)
[2019-07-12] MEDS: amLODIPine 10 MG TAB PO SCH (08:05)
[2019-07-12] MEDS: NYSTATIN 100,000 UNITS/GM TOPICAL PWD 15 GM TOP SCH ×2 (08:06→20:24)
[2019-07-12] MEDS: LIDOCAINE 5% (LIDODERM) PATCH TD SCH (08:06)
[2019-07-12] MEDS: CHLORHEXIDINE GLUCONATE 0.12 % 15ML UDC (PERIDEX ORAL RINSE) XX SCH ×3 (08:06→20:16)
[2019-07-12] MEDS: IPRATROPIUM 0.5MG/ALBUTEROL 2.5MG INH SOL UD 3ML (DUONEB)(J7620) NEB SCH ×4 (08:52→19:40)
[2019-07-12 11:05] LABS: NT-PRO BNP 125 PG/ML (<450)
[2019-07-12] MEDS ORDERED: IPRATROPIUM 0.5MG/ALBUTEROL 2.5MG INH SOL UD 3ML (DUONEB)(J7620) NEB SCH (11:15)
--- NOTE | 2019-07-12 11:47 | REP ---
Bilateral lower extremity Duplex Doppler venous ultrasound: Real time compression and duplex Doppler interrogation of the bilateral lower extremity deep venous system is performed. Bilaterally, the common femoral, superficial femoral and popliteal veins are fully compressible with transducer pressure and demonstrate normal spontaneous and phasic flow, without evidence of deep venous thrombosis. Impression: No evidence of deep venous thrombosis of the bilateral lower extremity femoral popliteal venous system. Electronically Signed by Diogenes Esparza MD 07/12/2019 11:39 A
[2019-07-12 14:00] VITALS: BP 149/72
--- NOTE | 2019-07-12 14:45 | IPNPDOC ---
PM&R Progress Note DATE OF SERVICE: July 12, 2019 Associate Professor Physician Progress Note Subjective: Patient reports she thinks her breathing is not worse than usual today and denies feeling wheezy despite having wheezes one stethoscope exam. REVIEW OF SYSTEMS: The following is a completed review of systems and has been reviewed. Review of systems otherwise unremarkable. PAIN: Patient self reports no pain EYES: No recent vision changes EARS, NOSE, & THROAT: No throat pain, denies dysphagia CARDIOVASCULAR: denies chest pain or palpitations PULMONARY: Denies shortness of breath, +chronic cough GASTROINTESTINAL: Denies constipation/diarrhea GENITOURINARY: denies dysuria, however +incontinence MUSCULOSKELETAL: left sided paresis NEUROLOGICAL: left sided paresis HEMATOLOGICAL: denies easy bruising SKIN: sacral ulcer PSYCHIATRIC: Unremarkable All other review of systems found to be negative. PHYSICAL EXAMINATION: VITAL SIGNS: Please see below. GENERAL: Pleasant and cooperative. No acute distress. obese HEENT: PERRL. Extraocular movements intact. Clear conjunctiva CARDIOVASCULAR: Regular rate and rhythm. No murmurs, rubs, or gallops LUNGS: +scattered wheezes, no crackles ABDOMEN: Soft, nontender, nondistended. Positive bowel sounds. Normal active bowel sounds NEUROLOGICAL: Alert and oriented times three. Cranial nerves II through XII g rossly intact. Sensation grossly intact to light touch in all 4 limbs, with extinction to touch on the left EXTREMITIES: 5\5 strength right upper extremities. 3/5 strength left UE 4-\5 strength right lower extremity. 3/5 strength in left lower extremity. +bilat LE edema with mild erythema of anterior calves SKIN: sacral ulcer in gluteal fold (healed) ASSESSMENT:84-year-old F with past medical history of HTN who presents status post right basal ganglia hemorrhagic stroke PLAN: 1. 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 Neuro: s/p right basal ganglia hemorrhagic stroke-c/u statin and BP control for secondary stroke prevention -prozac for motor recovery 3. Cardiac: hx of HTN c/u amlodipine and Cozaar, atenolol on hold due to recent bradycardia, will c/u Lasix for bilat edema and elevated BPs and low dose metoprolol with parameters- BPs improving, will fluid restrict and order daily weights as likely some degree of chronic CHF with cardiomegaly noted on CXR 07/11/19 -medicine consult to assist in overall management 4. Resp: encourage incentive spirometry, duonebs and and guaifenesin -patient with chronic cough, CXR 07/11/19 no infiltrate, no leukocytosis -concern today as patient with wheeze on exam and appeared more short of breath in therapy with transient desaturation to the 80s in therapy- CXR negative for infiltrate, BNP not elevated, and no DVT, will increase frequency of Duonebs and fluid restrict, patient does not report feeling more short of breath today than usual -02 ordered prn as well 5. GI ppx: protonix 6. DVT ppx: heparin and teds -dopplers ordered today and negative 7. Skin: barrier cream and turn q2h in bed, heel offloaders and Acewraps for lymphedema, optifoam to heels for prevention 8. Pain: tylenol prn 9. Dispo: TBD Allergies Coded Allergies: cephalexin (Verified Allergy, Unknown, TONGUE SWELLS, 07/03/19) Vital Signs Vital Signs Date Time Temp Pulse Resp B/P (MAP) Pulse Ox O2 Delivery O2 Flow Rate FiO2 07/12/19 08:05 67 122/64 07/12/19 05:57 96.6 18 96 Room Air Laboratory Data CBC/BMP Laboratory Tests 07/12/19 06:14 Labs 24H Laboratory Tests 2 07/12/19 06:14: Immature Granulocyte % (Auto) 0.9, Neutrophils (%) (Auto) 60.9, Lymphocytes (%) (Auto) 23.0L, Monocytes (%) (Auto) 9.1H, Eosinophils (%) (Auto) 5.1H, Basophils (%) (Auto) 1.0, Neutrophils # (Auto) 4.2, Lymphocytes # (Auto) 1.6, Monocytes # (Auto) 0.6, Eosinophils # (Auto) 0.4, Basophils # (Auto) 0.1, Nucleated Red Blood Cells % (auto) 0.0, Anion Gap 5L, Glomerular Filtration Rate > 60.0, Calcium Level 9.0, [id number]-Type Natriuretic Peptide 125 Current Medications Current Medications Current Medications Medications (Trade) Dose Ordered Sig/Brenden Route PRN Reason Start Time Stop Time Status Last Admin Dose Admin Acetaminophen (Tylenol Tab) 650 mg Q4HP PRN PO fever/MILD PAIN (PS 1-4) 07/03/19 13:45 07/11/19 06:47 Albuterol/ Ipratropium (Duoneb (Ipr 0.5mg/Alb 2.5mg)) 3 ml Q2HP PRN NEB SOB/WHEEZING 07/03/19 13:45 07/03/19 16:00 DC Albuterol/ Ipratropium (Duoneb (Ipr 0.5mg/Alb 2.5mg)) 3 ml QID NEB 07/12/19 11:15 07/12/19 11:51 DC Albuterol/ Ipratropium (Duoneb (Ipr 0.5mg/Alb 2.5mg)) 3 ml RQID NEB 07/12/19 12:00 07/12/19 11:53 Albuterol/ Ipratropium (Duoneb (Ipr 0.5mg/Alb 2.5mg)) 3 ml RTID NEB 07/03/19 14:00 07/12/19 10:40 DC 07/12/19 08:52 Amlodipine Besylate (Norvasc) 10 mg DAILY PO 07/04/19 09:00 07/12/19 08:05 Artificial Tears (Akwa Tears) 2 drop QID PRN OU DRY EYES 07/03/19 17:00 Chlorhexidine Gluconate (Peridex Oral Rinse) 15 ml TID XX 07/09/19 16:00 07/12/19 08:06 Cyanocobalamin (Vitamin B12) 1,000 mcg DAILY PO 07/04/19 09:00 07/03/19 16:39 DC Docusate Sodium (Colace) 100 mg BID PO 07/03/19 21:00 07/04/19 15:50 DC 07/04/19 08:36 Docusate Sodium (Colace) 100 mg BID PO 07/09/19 21:00 07/12/19 08:04 Docusate Sodium (Colace) 100 mg BIDP PRN PO CONSTIPATION 07/04/19 16:00 07/09/19 15:14 DC 07/07/19 20:17 Fluoxetine HCl (PROzac) 20 mg DAILY PO 07/04/19 09:00 07/12/19 08:04 Folic Acid (Folic Acid) 1 mg DAILY PO 07/04/19 09:00 07/12/19 08:04 Furosemide (Lasix) 20 mg DAILY PO 07/04/19 10:00 07/12/19 10:42 DC 07/12/19 08:04 Guaifenesin (Robitussin Tab) 400 mg Q4HP PRN PO COUGH 07/03/19 13:45 07/03/19 16:00 DC Guaifenesin (Robitussin Tab) 400 mg TID PO 07/03/19 16:00 07/12/19 08:03 Heparin Sodium (Porcine) (Heparin) 5,000 units Q12H SC 07/03/19 21:00 07/12/19 08:05 Home Med (Med Rec Complete!) ASDIRECTED XX 07/03/19 16:15 07/03/19 16:14 DC Lidocaine (Lidoderm Patch) 1 patch DAILY TD 07/05/19 09:00 07/12/19 08:06 Loperamide HCl (Imodium) 2 mg ASDIRECTED PRN PO DIARRHEA 07/04/19 16:00 07/04/19 16:32 Losartan Potassium (Cozaar) 50 mg DAILY PO 07/04/19 09:00 07/12/19 08:04 Metoprolol Tartrate (Lopressor) 12.5 mg BID PO 07/04/19 09:00 07/12/19 08:05 Metoprolol Tartrate (Lopressor) 25 mg BID PO 07/04/19 10:00 07/04/19 09:55 DC Non-Formulary Medication ( See Comment Field Below ) REMOVE LIDODERM PATCH DAILY@21 XX 07/05/19 21:00 07/11/19 20:42 Nystatin (Mycostatin Powder, Nystop) apply to groin BID TOP 07/03/19 21:00 07/12/19 08:06 Pantoprazole Sodium (Protonix) 40 mg DAILY PO 07/04/19 09:00 07/12/19 08:04 Polyethylene Glycol (Miralax) 1 pkt DAILY PRN PO CONSTIPATION 07/03/19 13:45 Senna (Senokot) 1 tab QHS PO 07/03/19 21:00 07/04/19 15:50 DC 07/03/19 21:05 Senna (Senokot) 1 tab QHS PO 07/09/19 21:00 07/10/19 20:51 Senna (Senokot) 1 tab QHSP PRN PO CONSTIPATION 07/04/19 16:00 07/09/19 15:14 DC 07/07/19 20:18 RAN ESPINOZA MD July 12, 2019 14:45
[2019-07-12] MEDS: SENNA 8.6 MG TAB (SENOKOT) PO SCH (20:16)
[2019-07-12] MEDS: **NOTE PATIENT COMMENT** MISC XX SCH (20:25)
[2019-07-12] MEDS: ACETAMINOPHEN TAB 650MG DOSE (2X325MG) PO PRN (20:34)
[2019-07-12 22:00] VITALS: BP_SYST 148; BP_SYST 152; BP_DIAS 64; BP_DIAS 67
[2019-07-13] MEDS: REMEDY PHYTOPLEX Z-GUARD PASTE 113GM TUBE (FROM STOREROOM PRODUCT) TOP SCH ×4 (05:40→20:42)
[2019-07-13 06:00] VITALS: BP 146/67
[2019-07-13] MEDS: IPRATROPIUM 0.5MG/ALBUTEROL 2.5MG INH SOL UD 3ML (DUONEB)(J7620) NEB SCH ×4 (07:36→14:24)
[2019-07-13] MEDS: LIDOCAINE 5% (LIDODERM) PATCH TD SCH (08:58)
[2019-07-13] MEDS: DOCUSATE SODIUM 100 MG CAP PO SCH ×2 (08:59→20:45)
[2019-07-13] MEDS: METOPROLOL TART 12.5 MG PER 1/2 TAB PO SCH ×2 (08:59→20:45)
[2019-07-13] MEDS: HEPARIN SOD (PORCINE) 5000UNITS/ML VIAL (J1644 PER 1000UNITS) SC SCH ×2 (08:59→20:46)
[2019-07-13] MEDS: PANTOPRAZOLE 40MG TAB (PROTONIX) PO SCH (08:59)
[2019-07-13] MEDS: LOSARTAN 50MG TABLET PO SCH (08:59)
[2019-07-13] MEDS: FOLIC ACID 1 MG TAB PO SCH (08:59)
[2019-07-13] MEDS: amLODIPine 10 MG TAB PO SCH (09:00)
[2019-07-13] MEDS: guaiFENesin 200 MG TAB PO SCH ×3 (09:00→20:44)
[2019-07-13] MEDS: FLUoxetine 20 MG CAP PO SCH (09:00)
[2019-07-13] MEDS: NYSTATIN 100,000 UNITS/GM TOPICAL PWD 15 GM TOP SCH ×2 (09:00→20:42)
[2019-07-13] MEDS: CHLORHEXIDINE GLUCONATE 0.12 % 15ML UDC (PERIDEX ORAL RINSE) XX SCH ×3 (09:00→20:47)
[2019-07-13 14:00] VITALS: BP 119/55
[2019-07-13 20:24] VITALS: BP 142/84
[2019-07-13] MEDS: **NOTE PATIENT COMMENT** MISC XX SCH (20:42)
[2019-07-13] MEDS: SENNA 8.6 MG TAB (SENOKOT) PO SCH (20:46)
[2019-07-13] MEDS: ACETAMINOPHEN TAB 650MG DOSE (2X325MG) PO PRN (20:49)
[2019-07-14 03:35] VITALS: BP 122/70
[2019-07-14] MEDS ORDERED: IPRATROPIUM 0.5MG/ALBUTEROL 2.5MG INH SOL UD 3ML (DUONEB)(J7620) NEB ONE (04:30)
[2019-07-14] MEDS: REMEDY PHYTOPLEX Z-GUARD PASTE 113GM TUBE (FROM STOREROOM PRODUCT) TOP SCH ×4 (05:55→23:35)
[2019-07-14] MEDS: FUROSEMIDE 20 MG TAB PO SCH ×2 (05:55→09:08)
[2019-07-14] MEDS: IPRATROPIUM 0.5MG/ALBUTEROL 2.5MG INH SOL UD 3ML (DUONEB)(J7620) NEB SCH ×4 (07:13→19:43)
[2019-07-14] MEDS: CHLORHEXIDINE GLUCONATE 0.12 % 15ML UDC (PERIDEX ORAL RINSE) XX SCH ×3 (09:06→21:02)
[2019-07-14] MEDS: NYSTATIN 100,000 UNITS/GM TOPICAL PWD 15 GM TOP SCH ×2 (09:07→21:03)
[2019-07-14] MEDS: LIDOCAINE 5% (LIDODERM) PATCH TD SCH (09:07)
[2019-07-14] MEDS: HEPARIN SOD (PORCINE) 5000UNITS/ML VIAL (J1644 PER 1000UNITS) SC SCH ×2 (09:07→21:02)
[2019-07-14] MEDS: FOLIC ACID 1 MG TAB PO SCH (09:08)
[2019-07-14] MEDS: FLUoxetine 20 MG CAP PO SCH (09:08)
[2019-07-14] MEDS: PANTOPRAZOLE 40MG TAB (PROTONIX) PO SCH (09:08)
[2019-07-14] MEDS: guaiFENesin 200 MG TAB PO SCH ×3 (09:08→21:01)
[2019-07-14] MEDS: DOCUSATE SODIUM 100 MG CAP PO SCH ×2 (09:09→21:02)
[2019-07-14] MEDS: LOSARTAN 50MG TABLET PO SCH (09:10)
[2019-07-14] MEDS: amLODIPine 10 MG TAB PO SCH (09:12)
[2019-07-14] MEDS: METOPROLOL TART 12.5 MG PER 1/2 TAB PO SCH ×2 (09:12→21:01)
[2019-07-14 14:00] VITALS: BP 157/69
[2019-07-14 20:20] VITALS: BP 118/58
[2019-07-14] MEDS: SENNA 8.6 MG TAB (SENOKOT) PO SCH (21:02)
[2019-07-14] MEDS: **NOTE PATIENT COMMENT** MISC XX SCH (21:03)
[2019-07-14] MEDS ORDERED: IPRATROPIUM 0.5MG/ALBUTEROL 2.5MG INH SOL UD 3ML (DUONEB)(J7620) NEB PRN (23:15)
[2019-07-15] MEDS: REMEDY PHYTOPLEX Z-GUARD PASTE 113GM TUBE (FROM STOREROOM PRODUCT) TOP SCH ×3 (05:05→16:17)
[2019-07-15 06:00] VITALS: BP 128/64
[2019-07-15] MEDS: IPRATROPIUM 0.5MG/ALBUTEROL 2.5MG INH SOL UD 3ML (DUONEB)(J7620) NEB SCH ×4 (07:31→20:00)
[2019-07-15 07:46] LABS: BASO % 0.6 % (0.0-1.0); EOS # 0.7 10^3/uL (0.0-0.5); EOS % 10.4 % (0.0-3.0); HEMATOCRIT 41.2 % (36.0-47.0); HEMOGLOBIN 13.6 g/dl (12.0-15.5); LYMPH # 1.8 10^3/uL (1.5-5.0); MEAN CORPUSCULAR VOLUME 93.8 fl (80.0-96.0); MONO # 0.6 10^3/uL (0.0-0.8); MONO % 8.3 % (0.0-5.0); NEUTROPHILS # 3.8 10^3/uL (1.5-8.5); NEUTROPHILS % 54.1 % (36.0-66.0); PLATELET COUNT, AUTOMATED 199 10^3/uL (150-450); RED BLOOD COUNT 4.39 10^6/uL (4.00-5.40)
[2019-07-15 08:03] LABS: BLOOD UREA NITROGEN 29 MG/DL (7-18); CALCIUM LEVEL 9.2 MG/DL (8.8-10.2); CARBON DIOXIDE LEVEL 26 MEQ/L (21-32); CHLORIDE LEVEL 106 MEQ/L (98-107); CREATININE FOR GFR 0.92 MG/DL (0.55-1.30); GLOMERULAR FILTRATION RATE > 60.0 (>32); GLUCOSE, FASTING 118 MG/DL (70-100); POTASSIUM SERUM 3.3 MEQ/L (3.5-5.1); SODIUM LEVEL 138 MEQ/L (136-145)
[2019-07-15] MEDS: FLUoxetine 20 MG CAP PO SCH (09:07)
[2019-07-15] MEDS: CHLORHEXIDINE GLUCONATE 0.12 % 15ML UDC (PERIDEX ORAL RINSE) XX SCH ×3 (09:07→20:26)
[2019-07-15] MEDS: FUROSEMIDE 20 MG TAB PO SCH (09:08)
[2019-07-15] MEDS: FOLIC ACID 1 MG TAB PO SCH (09:08)
[2019-07-15] MEDS: METOPROLOL TART 12.5 MG PER 1/2 TAB PO SCH ×2 (09:08→20:28)
[2019-07-15] MEDS: guaiFENesin 200 MG TAB PO SCH ×3 (09:08→20:29)
[2019-07-15] MEDS: DOCUSATE SODIUM 100 MG CAP PO SCH ×2 (09:08→20:28)
[2019-07-15] MEDS: amLODIPine 10 MG TAB PO SCH (09:08)
[2019-07-15] MEDS: LOSARTAN 50MG TABLET PO SCH (09:08)
[2019-07-15] MEDS: PANTOPRAZOLE 40MG TAB (PROTONIX) PO SCH (09:08)
[2019-07-15] MEDS: HEPARIN SOD (PORCINE) 5000UNITS/ML VIAL (J1644 PER 1000UNITS) SC SCH ×2 (09:09→20:27)
[2019-07-15] MEDS: LIDOCAINE 5% (LIDODERM) PATCH TD SCH (09:10)
[2019-07-15] MEDS: NYSTATIN 100,000 UNITS/GM TOPICAL PWD 15 GM TOP SCH ×2 (09:11→20:25)
--- NOTE | 2019-07-15 09:46 | REP ---
REASON FOR EXAM: Weakness. COMPARISON: 07/11/2019 There is no change from the prior exam. The technique utilized in obtaining the radiograph has magnified the cardiac silhouette and accentuated the interstitial markings. There are no acute patchy parenchymal opacities or pleural effusions. There is cardiomegaly accentuated by technique. There is no change in the osseous structures. IMPRESSION: No change. Electronically Signed by García Cadet DO 07/15/2019 10:11 A
[2019-07-15] MEDS ORDERED: POTASSIUM CHLORIDE 10 MEQ SR TABLET PO ONE (11:30)
--- NOTE | 2019-07-15 12:53 | IPN ---
DATE OF SERVICE: 07/14/2019 The patient complains of cough productive of white sputum. No fever or chills. Chest x-ray showed no acute disease, cardiomegaly with post thoracotomy changes on the right. The patient otherwise has been stable. Working with physical therapy. No other complaints. Denies any paroxysmal nocturnal dyspnea (PND) or orthopnea. Requires two-people assistance for ambulation. Currently on a mechanical soft diet and aspiration precautions. Vital signs: Temperature 97.4, pulse 65, respiratory rate 20, blood pressure 130/70, 92% on room air. Generally, the patient is awake, alert, oriented. Able to speak. Face is symmetric. Tongue is midline. No conversational dyspnea or jugular venous distention (JVD) or thyromegaly. Lungs diminished with fine expiratory wheezing. No crackles. Heart: S1, S2, sinus rhythm. No murmurs, rubs, or gallops. Abdomen: Is soft, nontender, nondistended. Positive bowel sounds. Extremities: No cyanosis or clubbing. Positive pitting edema bilaterally 2+. Neurologically, awake, alert, oriented. Answering questions appropriately. The patient is able to state her name, where she is, and the date. No facial asymmetry. The patient does have significant weakness in her left side with 3/5 strength on the left upper and lower and 5/5 strength in the right upper extremity. Gait was not tested. 07/12/2019 complete blood count (CBC) and metabolic panel have been reviewed. ASSESSMENT AND PLAN: This is an 84-year-old female with the history of breast cancer, hypertension, lung cancer, reflux, diverticulosis, presented on 06/29/2019 to [facility] with facial droop and left-sided weakness, found to have a hemorrhagic cerebrovascular accident (CVA) on the right with hypertensive emergency with pressure of over 200. The patient refused neurosurgical evaluation and was treated medically with antihypertensives and transferred to rehabilitation. IMPRESSION: 1. Hemorrhagic cerebrovascular accident. Currently, maintained with ideal blood pressure. She is currently on losartan 50, metoprolol 12.5 mg with good control, and Norvasc 10 mg daily. No changes. 2. Cough. X-ray was negative. The patient is high risk for aspiration. Monitor for worsening distress, hypoxia, fever, and chills. May develop a pneumonitis. Aspiration precautions and continue on soft diet. 3. Hypertension. Controlled. 4. Reflux. On proton pump inhibitor (PPI) 40 mg of Protonix. 5. Deep venous thrombosis (DVT) prophylaxis with subcutaneous heparin. MTDD
[2019-07-15 14:00] VITALS: BP 142/65
--- NOTE | 2019-07-15 15:07 | IPNPDOC ---
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 REVIEW OF SYSTEMS: The following is a completed review of systems and has been reviewed. Review of systems otherwise unremarkable. PAIN: Patient self reports no pain EYES: No recent vision changes EARS, NOSE, & THROAT: No throat pain, denies dysphagia CARDIOVASCULAR: denies chest pain or palpitations PULMONARY: Denies shortness of breath, +chronic cough GASTROINTESTINAL: Denies constipation/diarrhea GENITOURINARY: denies dysuria, however +incontinence MUSCULOSKELETAL: left sided paresis NEUROLOGICAL: left sided paresis HEMATOLOGICAL: denies easy bruising SKIN: sacral ulcer PSYCHIATRIC: Unremarkable All other review of systems found to be negative. PHYSICAL EXAMINATION: VITAL SIGNS: Please see below. GENERAL: Pleasant and cooperative. No acute distress. obese HEENT: PERRL. Extraocular movements intact. Clear conjunctiva CARDIOVASCULAR: Regular rate and rhythm. No murmurs, rubs, or gallops LUNGS: CTA, no wheeze or crackles ABDOMEN: Soft, nontender, nondistended. Positive bowel sounds. Normal active bowel sounds NEUROLOGICAL: Alert and oriented times three. Cranial nerves II through XII grossly intact. Sensation grossly intact to light touch in all 4 limbs, with extinction to touch on the left EXTREMITIES: 5\5 strength right upper extremities. 3/5 strength left UE 4-\5 strength right lower extremity. 3/5 strength in left lower extremity. +bilat LE edema with mild erythema of anterior calves SKIN: sacral ulcer in gluteal fold (healed) ASSESSMENT:84-year-old F with past medical history of HTN who presents status post right basal ganglia hemorrhagic stroke PLAN: 1. 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 Neuro: s/p right basal ganglia hemorrhagic stroke-c/u statin and BP control for secondary stroke prevention -prozac for motor recovery 3. Cardiac: hx of HTN c/u amlodipine and Cozaar, atenolol on hold due to recent bradycardia, will c/u Lasix for bilat edema and elevated BPs and low dose meto prolol with parameters- BPs improving, c/u fluid restrict and order daily weights as likely some degree of chronic CHF with cardiomegaly noted on CXR 07/11/19 -medicine consult to assist in overall management 4. Resp: encourage incentive spirometry, duonebs and and guaifenesin -patient with chronic cough, CXR 07/11/19 and 07/15/19 no infiltrate, no leukocytosis-per patient her cough is getting better, will add flonase and nasal saline for probable post nasal drip -BNP 07/11/19 low, no concnern for infection, no fevers or leukocytosis -02 ordered prn as well 5. GI ppx: protonix 6. DVT ppx: heparin and teds -dopplers negative 7. Skin: barrier cream and turn q2h in bed, heel offloaders and Acewraps for lymphedema, optifoam to heels for prevention 8. Pain: tylenol prn 9. Hypokalemia- K 3.3 will give 40meq once and start 20meq daily 10. Dispo: TBD Allergies Coded Allergies: cephalexin (Verified Allergy, Unknown, TONGUE SWELLS, 07/03/19) Vital Signs Vital Signs Date Time Temp Pulse Resp B/P (MAP) Pulse Ox O2 Delivery O2 Flow Rate FiO2 07/15/19 14:00 97.8 63 20 142/65 (90) 95 Room Air Laboratory Data CBC/BMP Laboratory Tests 07/15/19 07:13 Labs 24H Laboratory Tests 2 07/15/19 07:13: Immature Granulocyte % (Auto) 0.6, Neutrophils (%) (Auto) 54.1, Lymphocytes (%) (Auto) 26.0, Monocytes (%) (Auto) 8.3H, Eosinophils (%) (Auto) 10.4H, Basophils (%) (Auto) 0.6, Neutrophils # (Auto) 3.8, Lymphocytes # (Auto) 1.8, Monocytes # (Auto) 0.6, Eosinophils # (Auto) 0.7H, Basophils # (Auto) 0.0, Nucleated Red Blood Cells % (auto) 0.0, Anion Gap 6L, Glomerular Filtration Rate > 60.0, Calcium Level 9.2 Current Medications Current Medications Current Medications Medications (Trade) Dose Ordered Sig/Brenden Route PRN Reason Start Time Stop Time Status Last Admin Dose Admin Acetaminophen (Tylenol Tab) 650 mg Q4HP PRN PO fever/MILD PAIN (PS 1-4) 07/03/19 13:45 07/13/19 20:49 Albuterol/ Ipratropium (Duoneb (Ipr 0.5mg/Alb 2.5mg)) 3 ml Q2HP PRN NEB SOB/WHEEZING 07/03/19 13:45 07/03/19 16:00 DC Albuterol/ Ipratropium (Duoneb (Ipr 0.5mg/Alb 2.5mg)) 3 ml Q4HP PRN NEB SOB/WHEEZING 07/14/19 23:15 07/15/19 00:00 Albuterol/ Ipratropium (Duoneb (Ipr 0.5mg/Alb 2.5mg)) 3 ml QID NEB 07/12/19 11:15 07/12/19 11:51 DC Albuterol/ Ipratropium (Duoneb (Ipr 0.5mg/Alb 2.5mg)) 3 ml RQID NEB 07/12/19 12:00 07/14/19 19:43 Albuterol/ Ipratropium (Duoneb (Ipr 0.5mg/Alb 2.5mg)) 3 ml RTID NEB 07/03/19 14:00 07/12/19 10:40 DC 07/12/19 08:52 Amlodipine Besylate (Norvasc) 10 mg DAILY PO 07/04/19 09:00 07/15/19 09:08 Artificial Tears (Akwa Tears) 2 drop QID PRN OU DRY EYES 07/03/19 17:00 Chlorhexidine Gluconate (Peridex Oral Rinse) 15 ml TID XX 07/09/19 16:00 07/15/19 09:07 Cyanocobalamin (Vitamin B12) 1,000 mcg DAILY PO 07/04/19 09:00 07/03/19 16:39 DC Docusate Sodium (Colace) 100 mg BID PO 07/03/19 21:00 07/04/19 15:50 DC 07/04/19 08:36 Docusate Sodium (Colace) 100 mg BID PO 07/09/19 21:00 07/15/19 09:08 Docusate Sodium (Colace) 100 mg BIDP PRN PO CONSTIPATION 07/04/19 16:00 07/09/19 15:14 DC 07/07/19 20:17 Fluoxetine HCl (PROzac) 20 mg DAILY PO 07/04/19 09:00 07/15/19 09:07 Folic Acid (Folic Acid) 1 mg DAILY PO 07/04/19 09:00 07/15/19 09:08 Furosemide (Lasix) 20 mg DAILY PO 07/04/19 10:00 07/12/19 10:42 DC 07/12/19 08:04 Furosemide (Lasix) 20 mg DAILY PO 07/14/19 04:30 07/15/19 09:08 Guaifenesin (Robitussin Tab) 400 mg Q4HP PRN PO COUGH 07/03/19 13:45 07/03/19 16:00 DC Guaifenesin (Robitussin Tab) 400 mg TID PO 07/03/19 16:00 07/15/19 09:08 Heparin Sodium (Porcine) (Heparin) 5,000 units Q12H SC 07/03/19 21:00 07/15/19 09:09 Home Med (Med Rec Complete!) ASDIRECTED XX 07/03/19 16:15 07/03/19 16:14 DC Lidocaine (Lidoderm Patch) 1 patch DAILY TD 07/05/19 09:00 07/15/19 09:10 Loperamide HCl (Imodium) 2 mg ASDIRECTED PRN PO DIARRHEA 07/04/19 16:00 07/04/19 16:32 Losartan Potassium (Cozaar) 50 mg DAILY PO 07/04/19 09:00 07/15/19 09:08 Metoprolol Tartrate (Lopressor) 12.5 mg BID PO 07/04/19 09:00 07/15/19 09:08 Metoprolol Tartrate (Lopressor) 25 mg BID PO 07/04/19 10:00 07/04/19 09:55 DC Non-Formulary Medication ( See Comment Field Below ) REMOVE LIDODERM PATCH DAILY@21 XX 07/05/19 21:00 07/14/19 21:03 Nystatin (Mycostatin Powder, Nystop) apply to groin BID TOP 07/03/19 21:00 07/15/19 09:11 Pantoprazole Sodium (Protonix) 40 mg DAILY PO 07/04/19 09:00 07/15/19 09:08 Polyethylene Glycol (Miralax) 1 pkt DAILY PRN PO CONSTIPATION 07/03/19 13:45 Potassium Chloride (Micro-K Extencaps) 20 meq DAILY PO 07/16/19 09:00 Senna (Senokot) 1 tab QHS PO 07/03/19 21:00 07/04/19 15:50 DC 07/03/19 21:05 Senna (Senokot) 1 tab QHS PO 07/09/19 21:00 07/14/19 21:02 Senna (Senokot) 1 tab QHSP PRN PO CONSTIPATION 07/04/19 16:00 07/09/19 15:14 DC 07/07/19 20:18 RAN ESPINOZA MD Jul 15, 2019 15:07
[2019-07-15] MEDS: SODIUM CHLORIDE NASAL 0.65% SPRAY BTL (OCEAN) SCH ×2 (16:00→20:26)
[2019-07-15 19:52] VITALS: BP 129/64
[2019-07-15] MEDS: FLUTICASONE PROP 0.05% NASAL SPRAY 16 GM (FLONASE) NARES SCH (20:26)
[2019-07-15] MEDS: SENNA 8.6 MG TAB (SENOKOT) PO SCH (20:27)
[2019-07-15] MEDS: ACETAMINOPHEN TAB 650MG DOSE (2X325MG) PO PRN (20:29)
[2019-07-15] MEDS: **NOTE PATIENT COMMENT** MISC XX SCH (20:40)
[2019-07-16] MEDS: REMEDY PHYTOPLEX Z-GUARD PASTE 113GM TUBE (FROM STOREROOM PRODUCT) TOP SCH ×5 (00:08→20:52)
[2019-07-16 06:00] VITALS: BP 142/62
[2019-07-16 07:21] LABS: BLOOD UREA NITROGEN 31 MG/DL (7-18); CALCIUM LEVEL 8.9 MG/DL (8.8-10.2); CARBON DIOXIDE LEVEL 25 MEQ/L (21-32); CHLORIDE LEVEL 109 MEQ/L (98-107); CREATININE FOR GFR 0.87 MG/DL (0.55-1.30); GLOMERULAR FILTRATION RATE > 60.0 (>32); GLUCOSE, FASTING 99 MG/DL (70-100); SODIUM LEVEL 142 MEQ/L (136-145)
[2019-07-16] MEDS: IPRATROPIUM 0.5MG/ALBUTEROL 2.5MG INH SOL UD 3ML (DUONEB)(J7620) NEB SCH ×4 (07:21→19:34)
[2019-07-16] MEDS: amLODIPine 10 MG TAB PO SCH (10:38)
[2019-07-16] MEDS: FLUoxetine 20 MG CAP PO SCH (10:39)
[2019-07-16] MEDS: PANTOPRAZOLE 40MG TAB (PROTONIX) PO SCH (10:39)
[2019-07-16] MEDS: METOPROLOL TART 12.5 MG PER 1/2 TAB PO SCH ×2 (10:39→20:46)
[2019-07-16] MEDS: POTASSIUM CHLORIDE 10 MEQ SR TABLET PO SCH (10:39)
[2019-07-16] MEDS: FUROSEMIDE 20 MG TAB PO SCH (10:39)
[2019-07-16] MEDS: LOSARTAN 50MG TABLET PO SCH (10:39)
[2019-07-16] MEDS: FOLIC ACID 1 MG TAB PO SCH (10:40)
[2019-07-16] MEDS: DOCUSATE SODIUM 100 MG CAP PO SCH ×2 (10:40→20:46)
[2019-07-16] MEDS: CHLORHEXIDINE GLUCONATE 0.12 % 15ML UDC (PERIDEX ORAL RINSE) XX SCH ×3 (10:40→20:47)
[2019-07-16] MEDS: SODIUM CHLORIDE NASAL 0.65% SPRAY BTL (OCEAN) SCH ×3 (10:40→20:47)
[2019-07-16] MEDS: FLUTICASONE PROP 0.05% NASAL SPRAY 16 GM (FLONASE) NARES SCH ×2 (10:40→20:47)
[2019-07-16] MEDS: NYSTATIN 100,000 UNITS/GM TOPICAL PWD 15 GM TOP SCH ×2 (10:41→20:52)
[2019-07-16] MEDS: HEPARIN SOD (PORCINE) 5000UNITS/ML VIAL (J1644 PER 1000UNITS) SC SCH ×2 (10:42→20:46)
[2019-07-16] MEDS: guaiFENesin 200 MG TAB PO SCH ×3 (10:42→20:47)
[2019-07-16] MEDS: LIDOCAINE 5% (LIDODERM) PATCH TD SCH (10:45)
[2019-07-16 14:34] VITALS: BP 149/66
[2019-07-16 20:00] VITALS: BP 170/70
[2019-07-16] MEDS: SENNA 8.6 MG TAB (SENOKOT) PO SCH (20:46)
[2019-07-16] MEDS: ACETAMINOPHEN TAB 650MG DOSE (2X325MG) PO PRN (20:46)
[2019-07-16] MEDS: **NOTE PATIENT COMMENT** MISC XX SCH (20:52)
[2019-07-17] MEDS: REMEDY PHYTOPLEX Z-GUARD PASTE 113GM TUBE (FROM STOREROOM PRODUCT) TOP SCH ×3 (05:30→16:55)
[2019-07-17 05:47] VITALS: BP 150/70
[2019-07-17 07:29] LABS: BASO # 0.1 10^3/uL (0.0-0.2); BASO % 1.1 % (0.0-1.0); EOS # 0.7 10^3/uL (0.0-0.5); EOS % 10.2 % (0.0-3.0); HEMATOCRIT 37.9 % (36.0-47.0); HEMOGLOBIN 12.6 g/dl (12.0-15.5); LYMPH # 1.6 10^3/uL (1.5-5.0); LYMPH % 24.8 % (24.0-44.0); MEAN CORPUSCULAR HEMOGLOBIN 31.3 pg (27.0-33.0); MEAN CORPUSCULAR HGB CONC 33.2 g/dl (32.0-36.5); MONO # 0.6 10^3/uL (0.0-0.8); MONO % 8.4 % (0.0-5.0); NEUTROPHILS # 3.6 10^3/uL (1.5-8.5); NEUTROPHILS % 54.6 % (36.0-66.0); PLATELET COUNT, AUTOMATED 180 10^3/uL (150-450); RED BLOOD COUNT 4.03 10^6/uL (4.00-5.40); WHITE BLOOD COUNT 6.5 10^3/uL (4.0-10.0)
[2019-07-17] MEDS: IPRATROPIUM 0.5MG/ALBUTEROL 2.5MG INH SOL UD 3ML (DUONEB)(J7620) NEB SCH ×4 (07:29→19:56)
[2019-07-17 07:49] LABS: BLOOD UREA NITROGEN 31 MG/DL (7-18); CALCIUM LEVEL 9.1 MG/DL (8.8-10.2); CARBON DIOXIDE LEVEL 26 MEQ/L (21-32); CHLORIDE LEVEL 109 MEQ/L (98-107); CREATININE FOR GFR 0.84 MG/DL (0.55-1.30); GLOMERULAR FILTRATION RATE > 60.0 (>32); GLUCOSE, FASTING 102 MG/DL (70-100); POTASSIUM SERUM 4.1 MEQ/L (3.5-5.1); SODIUM LEVEL 141 MEQ/L (136-145)
[2019-07-17] MEDS: POTASSIUM CHLORIDE 10 MEQ SR TABLET PO SCH (08:16)
[2019-07-17] MEDS: PANTOPRAZOLE 40MG TAB (PROTONIX) PO SCH (08:16)
[2019-07-17] MEDS: DOCUSATE SODIUM 100 MG CAP PO SCH ×2 (08:16→21:06)
[2019-07-17] MEDS: METOPROLOL TART 12.5 MG PER 1/2 TAB PO SCH (08:17)
[2019-07-17] MEDS: FOLIC ACID 1 MG TAB PO SCH (08:17)
[2019-07-17] MEDS: guaiFENesin 200 MG TAB PO SCH ×3 (08:17→21:07)
[2019-07-17] MEDS: amLODIPine 10 MG TAB PO SCH (08:17)
[2019-07-17] MEDS: HEPARIN SOD (PORCINE) 5000UNITS/ML VIAL (J1644 PER 1000UNITS) SC SCH ×2 (08:17→21:08)
[2019-07-17] MEDS: LIDOCAINE 5% (LIDODERM) PATCH TD SCH (08:18)
[2019-07-17] MEDS: FLUoxetine 20 MG CAP PO SCH (08:18)
[2019-07-17] MEDS: FUROSEMIDE 20 MG TAB PO SCH (08:18)
[2019-07-17] MEDS: LOSARTAN 50MG TABLET PO SCH (08:18)
[2019-07-17] MEDS: CHLORHEXIDINE GLUCONATE 0.12 % 15ML UDC (PERIDEX ORAL RINSE) XX SCH ×3 (08:18→21:09)
[2019-07-17] MEDS: SODIUM CHLORIDE NASAL 0.65% SPRAY BTL (OCEAN) SCH ×3 (08:19→21:08)
[2019-07-17] MEDS: FLUTICASONE PROP 0.05% NASAL SPRAY 16 GM (FLONASE) NARES SCH ×2 (08:19→21:08)
[2019-07-17] MEDS: NYSTATIN 100,000 UNITS/GM TOPICAL PWD 15 GM TOP SCH ×2 (08:19→21:08)
--- NOTE | 2019-07-17 11:52 | HPEPDOC ---
General Date of Admission July 03, 2019 at 14:31 Date of Service: July 04, 2019 Chief Complaint The patient is a 84-year-old female admitted with a reason for visit of Right Basial Ganglia Bleed. 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 The ICH was felt to be due to hypertension. She declined further neurosurgical evaluation so was not transferred to a higher level of care, but was treated with iv and oral anti-hypertensives. Her bleed was monitored with serial ct scans which showed no change in hematoma size or mass effect. She was evaluated by therapy, found to have impairments in mobility and ADLs and deemed medically appropriate for discharge to ARU. Patient was admitted at our hospital for continued rehab. Today she just complained of the weakness of her left arm and leg. She also complained that the left upper extremity was swollen. Home Medications Scheduled Amlodipine Besylate (Amlodipine Besylate) 5 Mg Tablet, 10 MG PO DAILY, (Reported) Cyanocobalamin (Cyanocobalamin Injection) 1,000 Mcg/1 Ml Vial, 1,000 MCG IM QMONTH, (Reported) Esomeprazole Magnesium (Esomeprazole Magnesium) 20 Mg Capsule.dr, 40 MG PO DAILY, (Reported) Heparin Sodium,Porcine/Pf (Heparin 2,000 Unit/2 ml Vial) 1,000 Unit/1 Ml Vial, 5,000 UNIT SC BID, (Reported) STARTED AT [facility] Losartan Potassium (Losartan Potassium) 50 Mg Tablet, 50 MG PO DAILY, (Reported) Sennosides/Docusate Sodium (Senna-S Tablet) 1 Each Tablet, 2 TAB PO BID, (Reported) Scheduled PRN Acetaminophen (Acetaminophen) 325 Mg Tablet, 650 MG PO Q4H PRN for PAIN, (Reported) Dextran/Hypromellose (Genteal Tears 0.1%-0.3% Drop) 15 Ml Drops, 1 DROP OU Q4H PRN for DRY EYES, (Reported) Allergies Coded Allergies: cephalexin (Verified Allergy, Unknown, TONGUE SWELLS, 07/03/19) Past Medical History Medical History Intracranial hemorrhage in June 2019, HTN, breast cancer 10 years ago treated with radiation, lung cancer 60 years ago, GERD, diverticulosis, vitamin B12 defi ciency, skin cancers Surgical History Appendectomy, cholecystectomy, left hip replacement, pneumonectomy, hysterectomy, skin cancers removal. Family History Daughter has cervical dysplasia. Social History * Smoker: Denies Alcohol: Denies Drugs: denies A-FIB/CHADSVASC A-FIB History Current/History of A-Fib/PAF?: No Review of Systems Constitutional: Denies: Chills, Fever, Night Sweats Eyes: Denies: Pain, Vision change ENT: Denies: Head Aches, Ear Pain, Dysphagia Skin: Denies: Rash, Lesions, Breakdown Pulmonary: Denies: Dyspnea, Cough Cardiovascular: Denies: Chest Pain, Palpitations, Orthopnea, Paroxysmal Noc. Dyspnea, Lt Headedness Gastrointestinal: Denies: Nausea, Vomiting, Abdominal Pain, Diarrhea Genitourinary: Denies: Dysuria, Frequency, Incontinence, Retention Hematologic: Denies: Bruising, Bleeding Excessively Neurological: Reports: Weakness (on viet left ), Numbness Physical Examination General Exam: Positive: Alert, Cooperative, No Acute Distress Eye Exam: Positive: PERRLA, Conjunctiva & lids normal, EOMI; Negative: Sclera icteric ENT Exam: Positive: Atraumatic, Mucous membr. moist/pink, Pharynx Normal Neck Exam: Positive: Supple; Negative: JVD, thyromegaly Chest Exam: Positive: Clear to auscultation, Normal air movement Heart Exam: Positive: Rate Normal, Regular Rhythm, Normal S1, Normal S2; Negative: Murmurs, Rubs Abdomen Exam: Positive: Normal bowel sounds, Soft; Negative: Tenderness, Hepatospenomegaly Extremity Exam: Positive: Edema (left upper extremity and both lower extremities) Skin Exam: Positive: Nl turgor and temperature; Negative: Breakdown, Lesion Vital Signs Vital Signs Date Time Temp Pulse Resp B/P (MAP) Pulse Ox O2 Delivery O2 Flow Rate FiO2 07/04/19 14:00 97.8 66 18 120/62 (81) 96 Room Air Laboratory Data Labs 24H Laboratory Tests 2 07/04/19 06:15: Immature Granulocyte % (Auto) 0.4, Neutrophils (%) (Auto) 55.0, Lymphocytes (%) (Auto) 30.1, Monocytes (%) (Auto) 10.4H, Eosinophils (%) (Auto) 2.9, Basophils (%) (Auto) 1.2H, Neutrophils # (Auto) 2.9, Lymphocytes # (Auto) 1.6, Monocytes # (Auto) 0.5, Eosinophils # (Auto) 0.2, Basophils # (Auto) 0.1, Nucleated Red Blood Cells % (auto) 0.0, Anion Gap 9, Glomerular Filtration Rate > 60.0, Calcium Level 8.8, Total Bilirubin 0.6, Aspartate Amino Transf (AST/SGOT) 15, Alanine Aminotransferase (ALT/SGPT) 21, Alkaline Phosphatase 99, Total Protein 6.2L, Albumin 3.0L, Albumin/Globulin Ratio 0.9L CBC/BMP Laboratory Tests 07/04/19 06:15 Assessment/Plan 84 year old female with PMH of HTN, breast cancer, lung cancer, GERD, diverticul osis, 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 The ICH was felt to be due to hypertension. She declined further neurosurgical evaluation so was not transferred to a higher level of care, but was treated with iv and oral anti-hypertensives. Her bleed was monitored with serial ct scans which showed no change in hematoma size or mass effect. She was evaluated by therapy, found to have impairments in mobility and ADLs and deemed medically appropriate for discharge to ARU. Patient was admitted at our hospital for continued rehab. Right Intracranial hemorrhage with left hemiparesis, dysphagia PT , OT as per ARU getting swallow evaluation. Hypertension metoprolol, losartan, lasix, amlodipine GERD PPI Vi B12 def supplements ordered. Chronic venous stasis lasix. Sacral decubiti present on admission wound care. Plan / VTE VTE Prophylaxis Ordered?: Yes TRE BLOKC MD July 04, 2019 16:31
[2019-07-17] MEDS ORDERED: METOPROLOL TART 25 MG TABLET PO SCH (12:00)
--- NOTE | 2019-07-17 13:48 | IPNPDOC ---
PM&R Progress Note DATE OF SERVICE: Jul 17, 2019 Fiber Analyst Progress Note Subjective: Patient reporting she feels well, continues to have difficulty standing, but thinks she is overall getting stronger. REVIEW OF SYSTEMS: The following is a completed review of systems and has been reviewed. Review of systems otherwise unremarkable. PAIN: Patient self reports no pain EYES: No recent vision changes EARS, NOSE, & THROAT: No throat pain, denies dysphagia CARDIOVASCULAR: denies chest pain or palpitations PULMONARY: Denies shortness of breath, +chronic cough (improving) GASTROINTESTINAL: Denies constipation/diarrhea GENITOURINARY: denies dysuria, however +incontinence MUSCULOSKELETAL: left sided paresis NEUROLOGICAL: left sided paresis HEMATOLOGICAL: denies easy bruising SKIN: sacral ulcer PSYCHIATRIC: Unremarkable All other review of systems found to be negative. PHYSICAL EXAMINATION: VITAL SIGNS: Please see below. GENERAL: Pleasant and cooperative. No acute distress. obese HEENT: PERRL. Extraocular movements intact. Clear conjunctiva CARDIOVASCULAR: Regular rate and rhythm. No murmurs, rubs, or gallops LUNGS: CTA, no wheeze or crackles ABDOMEN: Soft, nontender, nondistended. Positive bowel sounds. Normal active bowel sounds NEUROLOGICAL: Alert and oriented times three. Cranial nerves II through XII grossly intact. Sensation grossly intact to light touch in all 4 limbs, with extinction to touch on the left EXTREMITIES: 5\5 strength right upper extremities. 3/5 strength left UE 4-\5 strength right lower extremity. 3/5 strength in left lower extremity. +bilat LE edema with mild erythema of anterior calves SKIN: sacral ulcer in gluteal fold (healed) ASSESSMENT:84-year-old F with past medical history of HTN who presents status post right basal ganglia hemorrhagic stroke PLAN: 1. 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 Neuro: s/p right basal ganglia hemorrhagic stroke-c/u statin and BP control for secondary stroke prevention -prozac for motor recovery 3. Cardiac: hx of HTN c/u amlodipine and Cozaar, atenolol on hold due to recent bradycardia, will c/u Lasix for bilat edema (will increase to 40mg as edema slightly worse and still with elevated BPs, will increase metoprolol to 25mg BID- c/u fluid restrict and order daily weights as likely some degree of chronic CHF with cardiomegaly noted on CXR 07/11/19 -medicine consult to assist in overall management 4. Resp: encourage incentive spirometry, duonebs and and guaifenesin -patient with chronic cough, CXR 07/11/19 and 07/15/19 no infiltrate, no leukocytosis-per patient her cough is getting better,c/u flonase and nasal saline for probable post nasal drip -BNP 07/11/19 low, no concern for infection, no fevers or leukocytosis -02 ordered prn and noctunral as patient with RODOLFO and has CPAP at home, however tends not to use it per daughter 5. GI ppx: protonix 6. DVT ppx: heparin and teds -dopplers negative 7. Skin: barrier cream and turn q2h in bed, heel offloaders and Acewraps for lymphedema, optifoam to heels for prevention 8. Pain: tylenol prn 9. Hypokalemia- resolved 10. Vitamin B12 deficiency- patient to receive monthly injection today, confirmed with her home nurse she is due 07/18/19 11. Dispo: per insurance she is covered until 07/19/19, however she has continued medical necessity given edema and elevated BPs and mobility concerns that she would benefit from at least another week of intensive therapy with goal for home Allergies Coded Allergies: cephalexin (Verified Allergy, Unknown, TONGUE SWELLS, 07/03/19) Vital Signs Vital Signs Date Time Temp Pulse Resp B/P (MAP) Pulse Ox O2 Delivery O2 Flow Rate FiO2 07/17/19 12:48 61 143/64 07/17/19 05:47 97.2 18 94 Room Air Laboratory Data CBC/BMP Laboratory Tests 07/17/19 06:50 Labs 24H Laboratory Tests 2 07/17/19 06:50: Immature Granulocyte % (Auto) 0.9, Neutrophils (%) (Auto) 54.6, Lymphocytes (%) (Auto) 24.8, Monocytes (%) (Auto) 8.4H, Eosinophils (%) (Auto) 10.2H, Basophils (%) (Auto) 1.1H, Neutrophils # (Auto) 3.6, Lymphocytes # (Auto) 1.6, Monocytes # (Auto) 0.6, Eosinophils # (Auto) 0.7H, Basophils # (Auto) 0.1, Nucleated Red Blood Cells % (auto) 0.0, Anion Gap 6L, Glomerular Filtration Rate > 60.0, Calcium Level 9.1 Current Medications Current Medications Current Medications Medications (Trade) Dose Ordered Sig/Brenden Route PRN Reason Start Time Stop Time Status Last Admin Dose Admin Acetaminophen (Tylenol Tab) 650 mg Q4HP PRN PO fever/MILD PAIN (PS 1-4) 07/03/19 13:45 07/16/19 20:46 Albuterol/ Ipratropium (Duoneb (Ipr 0.5mg/Alb 2.5mg)) 3 ml Q2HP PRN NEB SOB/WHEEZING 07/03/19 13:45 07/03/19 16:00 DC Albuterol/ Ipratropium (Duoneb (Ipr 0.5mg/Alb 2.5mg)) 3 ml Q4HP PRN NEB SOB/WHEEZING 07/14/19 23:15 07/15/19 00:00 Albuterol/ Ipratropium (Duoneb (Ipr 0.5mg/Alb 2.5mg)) 3 ml QID NEB 07/12/19 11:15 07/12/19 11:51 DC Albuterol/ Ipratropium (Duoneb (Ipr 0.5mg/Alb 2.5mg)) 3 ml RQID NEB 07/12/19 12:00 07/17/19 07:29 Albuterol/ Ipratropium (Duoneb (Ipr 0.5mg/Alb 2.5mg)) 3 ml RTID NEB 07/03/19 14:00 07/12/19 10:40 DC 07/12/19 08:52 Amlodipine Besylate (Norvasc) 10 mg DAILY PO 07/04/19 09:00 07/17/19 08:17 Artificial Tears (Akwa Tears) 2 drop QID PRN OU DRY EYES 07/03/19 17:00 Chlorhexidine Gluconate (Peridex Oral Rinse) 15 ml TID XX 07/09/19 16:00 07/17/19 08:18 Cyanocobalamin (Vitamin B12) 1,000 mcg DAILY PO 07/04/19 09:00 07/03/19 16:39 DC Docusate Sodium (Colace) 100 mg BID PO 07/03/19 21:00 07/04/19 15:50 DC 07/04/19 08:36 Docusate Sodium (Colace) 100 mg BID PO 07/09/19 21:00 07/17/19 08:16 Docusate Sodium (Colace) 100 mg BIDP PRN PO CONSTIPATION 07/04/19 16:00 07/09/19 15:14 DC 07/07/19 20:17 Fat Emulsion Intravenous 500 ml @ 20 mls/hr ONCE@1800 IV 07/17/19 18:00 07/18/19 08:00 Fluoxetine HCl (PROzac) 20 mg DAILY PO 07/04/19 09:00 07/17/19 08:18 Fluticasone Propionate (Flonase 0.05% Nasal [place]) 1 spray BID NARES 07/15/19 21:00 07/17/19 08:19 Folic Acid (Folic Acid) 1 mg DAILY PO 07/04/19 09:00 07/17/19 08:17 Furosemide (Lasix) 20 mg DAILY PO 07/04/19 10:00 07/12/19 10:42 DC 07/12/19 08:04 Furosemide (Lasix) 20 mg DAILY PO 07/14/19 04:30 07/17/19 08:18 Guaifenesin (Robitussin Tab) 400 mg Q4HP PRN PO COUGH 07/03/19 13:45 07/03/19 16:00 DC Guaifenesin (Robitussin Tab) 400 mg TID PO 07/03/19 16:00 07/17/19 08:17 Heparin Sodium (Porcine) (Heparin) 5,000 units Q12H SC 07/03/19 21:00 07/17/19 08:17 Home Med (Med Rec Complete!) ASDIRECTED XX 07/03/19 16:15 07/03/19 16:14 DC Insulin Human Lispro (HumaLOG INSULIN) See Protocol Table Q6H SC 07/17/19 18:00 07/18/19 12:01 Lidocaine (Lidoderm Patch) 1 patch DAILY TD 07/05/19 09:00 07/17/19 08:18 Loperamide HCl (Imodium) 2 mg ASDIRECTED PRN PO DIARRHEA 07/04/19 16:00 07/04/19 16:32 Losartan Potassium (Cozaar) 50 mg DAILY PO 07/04/19 09:00 07/17/19 08:18 Metoprolol Tartrate (Lopressor) 12.5 mg BID PO 07/04/19 09:00 07/17/19 10:37 DC 07/17/19 08:17 Metoprolol Tartrate (Lopressor) 25 mg BID PO 07/04/19 10:00 07/04/19 09:55 DC Metoprolol Tartrate (Lopressor) 25 mg Q6H PO 07/17/19 12:00 07/17/19 12:48 Multivitamins 10 ml/Chromium/ Copper/Manganese/ Seleni/Zn 1 ml/ Amino Ac/Electrol/ Dextrose/Calcium 2,011 ml @ 143 mls/hr ONCE@1800 IV 07/17/19 18:00 07/18/19 08:00 Non-Formulary Medication ( See Comment Field Below ) REMOVE LIDODERM PATCH DAILY@21 XX 07/05/19 21:00 07/16/19 20:52 Nystatin (Mycostatin Powder, Nystop) apply to groin BID TOP 07/03/19 21:00 07/17/19 08:19 Pantoprazole Sodium (Protonix) 40 mg DAILY PO 07/04/19 09:00 07/17/19 08:16 Polyethylene Glycol (Miralax) 1 pkt DAILY PRN PO CONSTIPATION 07/03/19 13:45 Potassium Chloride (Micro-K Extencaps) 20 meq DAILY PO 07/16/19 09:00 07/17/19 08:16 Senna (Senokot) 1 tab QHS PO 07/03/19 21:00 07/04/19 15:50 DC 07/03/19 21:05 Senna (Senokot) 1 tab QHS PO 07/09/19 21:00 07/16/19 20:46 Senna (Senokot) 1 tab QHSP PRN PO CONSTIPATION 07/04/19 16:00 07/09/19 15:14 DC 07/07/19 20:18 Sodium Chloride ([place] Nasal [place]) 2 spray TID NA 07/15/19 16:00 07/17/19 08:19 RAN ESPINOZA MD Jul 17, 2019 13:48
[2019-07-17 14:00] VITALS: BP 138/64
[2019-07-17] MEDS: ACETAMINOPHEN TAB 650MG DOSE (2X325MG) PO PRN (14:49)
[2019-07-17] MEDS ORDERED: CYANOCOBALAMIN 1,000MCG/ML VIAL (J3420) IM ONE (15:00)
[2019-07-17] MEDS ORDERED: MULTIVITAMIN -ADULT INJECTION 10 ML, CR/CU/SE/MN/ZN INJ 1 ML in AMINO AC/ELECTROLYTE/DE... IV SCH (18:00)
[2019-07-17] MEDS ORDERED: FAT EMULSION IV 20% 500 ML IV SCH (18:00)
[2019-07-17] MEDS ORDERED: HumaLOG INSULIN (NovoLOG) PER UNIT SC SCH (18:00)
[2019-07-17 20:00] VITALS: BP 140/30
[2019-07-17] MEDS: SENNA 8.6 MG TAB (SENOKOT) PO SCH (21:07)
[2019-07-17] MEDS: METOPROLOL TART 25 MG TABLET PO SCH (21:07)
[2019-07-17] MEDS: **NOTE PATIENT COMMENT** MISC XX SCH (21:09)
[2019-07-18] MEDS: REMEDY PHYTOPLEX Z-GUARD PASTE 113GM TUBE (FROM STOREROOM PRODUCT) TOP SCH ×5 (00:04→23:56)
[2019-07-18 06:00] VITALS: BP 130/58
[2019-07-18] MEDS: IPRATROPIUM 0.5MG/ALBUTEROL 2.5MG INH SOL UD 3ML (DUONEB)(J7620) NEB SCH ×4 (08:08→19:38)
[2019-07-18] MEDS: guaiFENesin 200 MG TAB PO SCH ×3 (08:29→20:42)
[2019-07-18] MEDS: DOCUSATE SODIUM 100 MG CAP PO SCH ×2 (08:29→20:42)
[2019-07-18] MEDS: amLODIPine 10 MG TAB PO SCH (08:30)
[2019-07-18] MEDS: POTASSIUM CHLORIDE 10 MEQ SR TABLET PO SCH (08:30)
[2019-07-18] MEDS: FUROSEMIDE 40 MG TAB PO SCH (08:31)
[2019-07-18] MEDS: METOPROLOL TART 25 MG TABLET PO SCH ×2 (08:31→20:42)
[2019-07-18] MEDS: HEPARIN SOD (PORCINE) 5000UNITS/ML VIAL (J1644 PER 1000UNITS) SC SCH ×2 (08:31→20:41)
[2019-07-18] MEDS: FLUTICASONE PROP 0.05% NASAL SPRAY 16 GM (FLONASE) NARES SCH ×2 (08:32→20:41)
[2019-07-18] MEDS: PANTOPRAZOLE 40MG TAB (PROTONIX) PO SCH (08:32)
[2019-07-18] MEDS: FOLIC ACID 1 MG TAB PO SCH (08:32)
[2019-07-18] MEDS: LOSARTAN 50MG TABLET PO SCH (08:32)
[2019-07-18] MEDS: LIDOCAINE 5% (LIDODERM) PATCH TD SCH ×2 (08:32→20:43)
[2019-07-18] MEDS: FLUoxetine 20 MG CAP PO SCH (08:32)
[2019-07-18] MEDS: NYSTATIN 100,000 UNITS/GM TOPICAL PWD 15 GM TOP SCH ×2 (08:33→20:40)
[2019-07-18] MEDS: SODIUM CHLORIDE NASAL 0.65% SPRAY BTL (OCEAN) SCH ×3 (08:33→20:41)
[2019-07-18] MEDS: CHLORHEXIDINE GLUCONATE 0.12 % 15ML UDC (PERIDEX ORAL RINSE) XX SCH ×3 (08:38→20:40)
[2019-07-18] MEDS ORDERED: ACETAMINOPHEN 500 MG TAB PO SCH (09:00)
[2019-07-18] MEDS ORDERED: traMADol 50 MG TAB PO PRN (10:30)
[2019-07-18] MEDS ORDERED: ACETAMINOPHEN TAB 650MG DOSE (2X325MG) As Ordered ONE (10:54)
[2019-07-18 14:00] VITALS: BP 143/67
--- NOTE | 2019-07-18 16:52 | IPNPDOC ---
PM&R Progress Note DATE OF SERVICE: Jul 18, 2019 Nematology Teacher Progress Note Subjective: Patient reporting she feel well and denies any fever or worsening respiratory symptoms. She says her back is aching and is helped by the lidoderm patch. She wants to avoid taking any opioids. REVIEW OF SYSTEMS: The following is a completed review of systems and has been reviewed. Review of systems otherwise unremarkable. PAIN: Patient self reports no pain EYES: No recent vision changes EARS, NOSE, & THROAT: No throat pain, denies dysphagia CARDIOVASCULAR: denies chest pain or palpitations PULMONARY: Denies shortness of breath, +chronic cough (improving) GASTROINTESTINAL: Denies constipation/diarrhea GENITOURINARY: denies dysuria, however +incontinence MUSCULOSKELETAL: left sided paresis NEUROLOGICAL: left sided paresis HEMATOLOGICAL: denies easy bruising SKIN: sacral ulcer PSYCHIATRIC: Unremarkable All other review of systems found to be negative. PHYSICAL EXAMINATION: VITAL SIGNS: Please see below. GENERAL: Pleasant and cooperative. No acute distress. obese HEENT: PERRL. Extraocular movements intact. Clear conjunctiva CARDIOVASCULAR: Regular rate and rhythm. No murmurs, rubs, or gallops LUNGS: CTA, no wheeze or crackles ABDOMEN: Soft, nontender, nondistended. Positive bowel sounds. Normal active bowel sounds NEUROLOGICAL: Alert and oriented times three. Cranial nerves II through XII grossly intact. Sensation grossly intact to light touch in all 4 limbs, with extinction to touch on the left EXTREMITIES: 5\5 strength right upper extremities. 3/5 strength left UE 4-\5 strength right lower extremity. 3/5 strength in left lower extremity. +bilat LE edema with mild erythema of anterior calves SKIN: sacral ulcer in gluteal fold (healed) ASSESSMENT:84-year-old F with past medical history of HTN who presents status post right basal ganglia hemorrhagic stroke PLAN: 1. Rehab- PT/OT advance gait and ADL impairments, strengthen/stretch/maintain ROM all 4 limbs, evaluate for AFO, heel offloaders bilat LE given lymphedema SYSTEM TECHNOLOGIST- swallow and cog- advanced to regular solids and thins 2. Neuro: s/p right basal ganglia hemorrhagic stroke-c/u statin and BP control for secondary stroke prevention -prozac for motor recovery 3. Cardiac: hx of HTN c/u amlodipine and Cozaar, atenolol on hold due to recent bradycardia, will c/u Lasix for bilat edema (increase to 40mg as edema) and increased metoprolol to 25mg BID- c/u fluid restrict and order daily weights as likely some degree of chronic CHF with cardiomegaly noted on CXR 07/11/19 -medicine consult to assist in overall management 4. Resp: encourage incentive spirometry, duonebs and and guaifenesin -patient with chronic cough, CXR 07/11/19 and 07/15/19 no infiltrate, no leukocytosis-per patient her cough is getting better,c/u flonase and nasal saline for probable post nasal drip -BNP 07/11/19 low, no concern for infection, no fevers or leukocytosis -02 ordered prn and nocturnal as patient with RODOLFO and has CPAP at home, however tends not to use it per daughter 5. GI ppx: protonix 6. DVT ppx: heparin and teds -dopplers negative 7. Skin: barrier cream and turn q2h in bed, heel offloaders and Acewraps for lymphedema, optifoam to heels for prevention 8. Pain: low back pain without radiation or new bowel/bladder symptoms, change tylenol to 100mg TID, lidoderm patch qHS and k-pad during the day 9. Hypokalemia- resolved 10. Vitamin B12 deficiency- s/p injection 07-17-19 11. Dispo: per insurance she is covered until 07/19/19, however she has continued medical necessity given edema and elevated BPs and mobility concerns that she would benefit from at least another week of intensive therapy with goal for home Allergies Coded Allergies: cephalexin (Verified Allergy, Unknown, TONGUE SWELLS, 07/03/19) Vital Signs Vital Signs Date Time Temp Pulse Resp B/P (MAP) Pulse Ox O2 Delivery O2 Flow Rate FiO2 07/18/19 14:00 97.7 63 17 143/67 (92) 95 Room Air Current Medications Current Medications Current Medications Medications (Trade) Dose Ordered Sig/Brenden Route PRN Reason Start Time Stop Time Status Last Admin Dose Admin Acetaminophen (Tylenol Tab) 650 mg Q4HP PRN PO fever/MILD PAIN (PS 1-4) 07/03/19 13:45 07/18/19 10:20 DC 07/17/19 14:49 Acetaminophen (Tylenol Tab) 1,000 mg TID PO 07/18/19 09:00 Cancel Acetaminophen (Tylenol Tab) 1,000 mg TID PO 07/18/19 16:00 Albuterol/ Ipratropium (Duoneb (Ipr 0.5mg/Alb 2.5mg)) 3 ml Q2HP PRN NEB SOB/WHEEZING 07/03/19 13:45 07/03/19 16:00 DC Albuterol/ Ipratropium (Duoneb (Ipr 0.5mg/Alb 2.5mg)) 3 ml Q4HP PRN NEB SOB/WHEEZING 07/14/19 23:15 07/15/19 00:00 Albuterol/ Ipratropium (Duoneb (Ipr 0.5mg/Alb 2.5mg)) 3 ml QID NEB 07/12/19 11:15 07/12/19 11:51 DC Albuterol/ Ipratropium (Duoneb (Ipr 0.5mg/Alb 2.5mg)) 3 ml RQID NEB 07/12/19 12:00 07/18/19 15:25 Albuterol/ Ipratropium (Duoneb (Ipr 0.5mg/Alb 2.5mg)) 3 ml RTID NEB 07/03/19 14:00 07/12/19 10:40 DC 07/12/19 08:52 Amlodipine Besylate (Norvasc) 10 mg DAILY PO 07/04/19 09:00 07/18/19 08:30 Artificial Tears (Akwa Tears) 2 drop QID PRN OU DRY EYES 07/03/19 17:00 Chlorhexidine Gluconate (Peridex Oral Rinse) 15 ml TID XX 07/09/19 16:00 07/18/19 08:38 Cyanocobalamin (Vitamin B12) 1,000 mcg DAILY PO 07/04/19 09:00 07/03/19 16:39 DC Docusate Sodium (Colace) 100 mg BID PO 07/03/19 21:00 07/04/19 15:50 DC 07/04/19 08:36 Docusate Sodium (Colace) 100 mg BID PO 07/09/19 21:00 07/17/19 21:06 Docusate Sodium (Colace) 100 mg BIDP PRN PO CONSTIPATION 07/04/19 16:00 07/09/19 15:14 DC 07/07/19 20:17 Fat Emulsion Intravenous 500 ml @ 20 mls/hr ONCE@1800 IV 07/17/19 18:00 07/18/19 08:00 Cancel Fluoxetine HCl (PROzac) 20 mg DAILY PO 07/04/19 09:00 07/18/19 08:32 Fluticasone Propionate (Flonase 0.05% Nasal [place]) 1 spray BID NARES 07/15/19 21:00 07/18/19 08:32 Folic Acid (Folic Acid) 1 mg DAILY PO 07/04/19 09:00 07/18/19 08:32 Furosemide (Lasix) 20 mg DAILY PO 07/04/19 10:00 07/12/19 10:42 DC 07/12/19 08:04 Furosemide (Lasix) 20 mg DAILY PO 07/14/19 04:30 07/17/19 13:44 DC 07/17/19 08:18 Furosemide (Lasix) 40 mg DAILY PO 07/18/19 09:00 07/18/19 08:31 Guaifenesin (Robitussin Tab) 400 mg Q4HP PRN PO COUGH 07/03/19 13:45 07/03/19 16:00 DC Guaifenesin (Robitussin Tab) 400 mg TID PO 07/03/19 16:00 07/18/19 08:29 Heparin Sodium (Porcine) (Heparin) 5,000 units Q12H SC 07/03/19 21:00 07/18/19 08:31 Home Med (Med Rec Complete!) ASDIRECTED XX 07/03/19 16:15 07/03/19 16:14 DC Insulin Human Lispro (HumaLOG INSULIN) See Protocol Table Q6H SC 07/17/19 18:00 07/18/19 12:01 Cancel Lidocaine (Lidoderm Patch) 1 patch DAILY TD 07/05/19 09:00 07/18/19 10:20 DC 07/18/19 08:32 Lidocaine (Lidoderm Patch) 1 patch QHS TD 07/18/19 21:00 Loperamide HCl (Imodium) 2 mg ASDIRECTED PRN PO DIARRHEA 07/04/19 16:00 07/04/19 16:32 Losartan Potassium (Cozaar) 50 mg DAILY PO 07/04/19 09:00 07/18/19 08:32 Metoprolol Tartrate (Lopressor) 12.5 mg BID PO 07/04/19 09:00 07/17/19 10:37 DC 07/17/19 08:17 Metoprolol Tartrate (Lopressor) 25 mg BID PO 07/04/19 10:00 07/04/19 09:55 DC Metoprolol Tartrate (Lopressor) 25 mg BID PO 07/17/19 21:00 07/18/19 08:31 Metoprolol Tartrate (Lopressor) 25 mg Q6H PO 07/17/19 12:00 07/17/19 13:44 DC 07/17/19 12:48 Multivitamins 10 ml/Chromium/ Copper/Manganese/ Seleni/Zn 1 ml/ Amino Ac/Electrol/ Dextrose/Calcium 2,011 ml @ 143 mls/hr ONCE@1800 IV 07/17/19 18:00 07/18/19 08:00 Cancel Non-Formulary Medication ( See Comment Field Below ) REMOVE LIDODERM PATCH DAILY XX 07/19/19 09:00 Non-Formulary Medication ( See Comment Field Below ) REMOVE LIDODERM PATCH DAILY@21 XX 07/05/19 21:00 07/18/19 10:50 DC 07/17/19 21:09 Nystatin (Mycostatin Powder, Nystop) apply to groin BID TOP 07/03/19 21:00 07/18/19 08:33 Pantoprazole Sodium (Protonix) 40 mg DAILY PO 07/04/19 09:00 07/18/19 08:32 Polyethylene Glycol (Miralax) 1 pkt DAILY PRN PO CONSTIPATION 07/03/19 13:45 Potassium Chloride (Micro-K Extencaps) 20 meq DAILY PO 07/16/19 09:00 07/18/19 08:30 Senna (Senokot) 1 tab QHS PO 07/03/19 21:00 07/04/19 15:50 DC 07/03/19 21:05 Senna (Senokot) 1 tab QHS PO 07/09/19 21:00 07/17/19 21:07 Senna (Senokot) 1 tab QHSP PRN PO CONSTIPATION 07/04/19 16:00 07/09/19 15:14 DC 07/07/19 20:18 Sodium Chloride ([place] Nasal [place]) 2 spray TID NA 07/15/19 16:00 07/18/19 08:33 Tramadol HCl (Ultram) 25 mg Q4HP PRN PO MODERATE PAIN (PS 5-7) 07/18/19 10:30 RAN ESPINOZA MD Jul 18, 2019 16:52
[2019-07-18] MEDS: ACETAMINOPHEN 500 MG TAB PO SCH ×2 (17:16→20:42)
[2019-07-18 20:00] VITALS: BP 142/74
[2019-07-18] MEDS: SENNA 8.6 MG TAB (SENOKOT) PO SCH (20:42)
[2019-07-19 04:00] VITALS: BP 143/82
[2019-07-19] MEDS: REMEDY PHYTOPLEX Z-GUARD PASTE 113GM TUBE (FROM STOREROOM PRODUCT) TOP SCH ×4 (05:57→23:33)
[2019-07-19 07:06] LABS: EOS % 13.1 % (0.0-3.0); HEMATOCRIT 38.2 % (36.0-47.0); HEMOGLOBIN 12.9 g/dl (12.0-15.5); LYMPH % 30.2 % (24.0-44.0); MEAN CORPUSCULAR HEMOGLOBIN 31.5 pg (27.0-33.0); MEAN CORPUSCULAR HGB CONC 33.8 g/dl (32.0-36.5); MEAN CORPUSCULAR VOLUME 93.4 fl (80.0-96.0); MONO % 8.8 % (0.0-5.0); NEUTROPHILS % 46.3 % (36.0-66.0); PLATELET COUNT, AUTOMATED 194 10^3/uL (150-450); RED BLOOD COUNT 4.09 10^6/uL (4.00-5.40); WHITE BLOOD COUNT 6.9 10^3/uL (4.0-10.0)
[2019-07-19 07:07] LABS: BASO # 0.1 10^3/uL (0.0-0.2); EOS # 0.9 10^3/uL (0.0-0.5); LYMPH # 2.1 10^3/uL (1.5-5.0); MONO # 0.6 10^3/uL (0.0-0.8); NEUTROPHILS # 3.2 10^3/uL (1.5-8.5)
[2019-07-19 07:28] LABS: CALCIUM LEVEL 9.2 MG/DL (8.8-10.2); CREATININE FOR GFR 1.04 MG/DL (0.55-1.30); GLOMERULAR FILTRATION RATE 53.6 (>32); POTASSIUM SERUM 4.1 MEQ/L (3.5-5.1)
[2019-07-19] MEDS: IPRATROPIUM 0.5MG/ALBUTEROL 2.5MG INH SOL UD 3ML (DUONEB)(J7620) NEB SCH ×4 (07:37→20:02)
[2019-07-19] MEDS: **NOTE PATIENT COMMENT** MISC XX SCH (09:00)
[2019-07-19] MEDS: guaiFENesin 200 MG TAB PO SCH ×3 (09:53→21:14)
[2019-07-19] MEDS: PANTOPRAZOLE 40MG TAB (PROTONIX) PO SCH (09:53)
[2019-07-19] MEDS: POTASSIUM CHLORIDE 10 MEQ SR TABLET PO SCH (09:53)
[2019-07-19] MEDS: FUROSEMIDE 40 MG TAB PO SCH (09:54)
[2019-07-19] MEDS: FLUoxetine 20 MG CAP PO SCH (09:54)
[2019-07-19] MEDS: DOCUSATE SODIUM 100 MG CAP PO SCH ×2 (09:54→21:00)
[2019-07-19] MEDS: ACETAMINOPHEN 500 MG TAB PO SCH ×3 (09:54→21:14)
[2019-07-19] MEDS: FOLIC ACID 1 MG TAB PO SCH (09:54)
[2019-07-19] MEDS: HEPARIN SOD (PORCINE) 5000UNITS/ML VIAL (J1644 PER 1000UNITS) SC SCH ×2 (09:55→21:14)
[2019-07-19] MEDS: METOPROLOL TART 25 MG TABLET PO SCH ×2 (09:58→21:00)
[2019-07-19] MEDS: SODIUM CHLORIDE NASAL 0.65% SPRAY BTL (OCEAN) SCH ×3 (09:59→21:00)
[2019-07-19] MEDS: CHLORHEXIDINE GLUCONATE 0.12 % 15ML UDC (PERIDEX ORAL RINSE) XX SCH ×3 (09:59→21:13)
[2019-07-19] MEDS: LOSARTAN 50MG TABLET PO SCH (09:59)
[2019-07-19] MEDS: FLUTICASONE PROP 0.05% NASAL SPRAY 16 GM (FLONASE) NARES SCH ×2 (09:59→21:00)
[2019-07-19] MEDS: amLODIPine 10 MG TAB PO SCH (09:59)
[2019-07-19] MEDS: NYSTATIN 100,000 UNITS/GM TOPICAL PWD 15 GM TOP SCH ×2 (10:01→21:00)
[2019-07-19] MEDS: ANALGESIC BALM CRM 120 GM TOP SCH ×3 (12:30→21:15)
[2019-07-19 14:00] VITALS: BP 131/71
--- NOTE | 2019-07-19 14:38 | IPNPDOC ---
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 REVIEW OF SYSTEMS: The following is a completed review of systems and has been reviewed. Review of systems otherwise unremarkable. PAIN: Patient self reports no pain EYES: No recent vision changes EARS, NOSE, & THROAT: No throat pain, denies dysphagia CARDIOVASCULAR: denies chest pain or palpitations PULMONARY: Denies shortness of breath, +chronic cough (improving) GASTROINTESTINAL: Denies constipation/diarrhea GENITOURINARY: denies dysuria, however +incontinence MUSCULOSKELETAL: left sided paresis NEUROLOGICAL: left sided paresis HEMATOLOGICAL: denies easy bruising SKIN: sacral ulcer PSYCHIATRIC: Unremarkable All other review of systems found to be negative. PHYSICAL EXAMINATION: VITAL SIGNS: Please see below. GENERAL: Pleasant and cooperative. No acute distress. obese HEENT: PERRL. Extraocular movements intact. Clear conjunctiva CARDIOVASCULAR: Regular rate and rhythm. No murmurs, rubs, or gallops LUNGS: CTA, no wheeze or crackles ABDOMEN: Soft, nontender, nondistended. Positive bowel sounds. Normal active bowel sounds NEUROLOGICAL: Alert and oriented times three. Cranial nerves II through XII gr ossly intact. Sensation grossly intact to light touch in all 4 limbs, with extinction to touch on the left EXTREMITIES: 5\5 strength right upper extremities. 3/5 strength left UE 4-\5 strength right lower extremity. 3/5 strength in left lower extremity. +bilat LE edema with mild erythema of anterior calves SKIN: sacral ulcer in gluteal fold (healed) ASSESSMENT:84-year-old F with past medical history of HTN who presents status post right basal ganglia hemorrhagic stroke PLAN: 1. 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 Neuro: s/p right basal ganglia hemorrhagic stroke-c/u statin and BP control for secondary stroke prevention -prozac for motor recovery 3. Cardiac: hx of HTN c/u amlodipine and Cozaar, atenolol on hold due to recent bradycardia, will c/u Lasix for bilat edema (increase to 40mg as edema) and in creased metoprolol to 25mg BID- c/u fluid restrict and order daily weights as likely some degree of chronic CHF with cardiomegaly noted on CXR 07/11/19 -medicine consult to assist in overall management 4. Resp: encourage incentive spirometry, duonebs and and guaifenesin -patient with chronic cough, CXR 07/11/19 and 07/15/19 no infiltrate, no leukocytosis-per patient her cough is getting better,c/u flonase and nasal saline for probable post nasal drip -BNP 07/11/19 low, no concern for infection, no fevers or leukocytosis -02 ordered prn and nocturnal as patient with RODOLFO and has CPAP at home, however tends not to use it per daughter 5. GI ppx: protonix 6. DVT ppx: heparin and teds -dopplers negative 7. Skin: barrier cream and turn q2h in bed, heel offloaders and Acewraps for lymphedema, optifoam to heels for prevention 8. Pain: low back pain without radiation or new bowel/bladder symptoms, c/u tylenol 1000mg TID, lidoderm patch qHS and k-pad during the day, menthol salicylate during the day as well-patient reporting back cream is helpful 9. Hypokalemia- resolved 10. Vitamin B12 deficiency- s/p injection 07-17-19 11. Dispo: per insurance she is covered until 07/19/19, however she has continued medical necessity given edema and elevated BPs and mobility concerns that she would benefit from at least another week of intensive therapy with goal for home Allergies Coded Allergies: cephalexin (Verified Allergy, Unknown, TONGUE SWELLS, 07/03/19) Vital Signs Vital Signs Date Time Temp Pulse Resp B/P (MAP) Pulse Ox O2 Delivery O2 Flow Rate FiO2 07/19/19 09:59 150/70 07/19/19 09:59 62 07/19/19 04:00 98.7 18 93 Room Air Laboratory Data CBC/BMP Laboratory Tests 07/19/19 06:11 Labs 24H Laboratory Tests 2 07/19/19 06:11: Immature Granulocyte % (Auto) 0.6, Neutrophils (%) (Auto) 46.3, Lymphocytes (%) (Auto) 30.2, Monocytes (%) (Auto) 8.8H, Eosinophils (%) (Auto) 13.1H, Basophils (%) (Auto) 1.0, Neutrophils # (Auto) 3.2, Lymphocytes # (Auto) 2.1, Monocytes # (Auto) 0.6, Eosinophils # (Auto) 0.9H, Basophils # (Auto) 0.1, Nucleated Red Blood Cells % (auto) 0.0, Anion Gap 10, Glomerular Filtration Rate 53.6, Calcium Level 9.2 Current Medications Current Medications Current Medications Medications (Trade) Dose Ordered Sig/Brenden Route PRN Reason Start Time Stop Time Status Last Admin Dose Admin Acetaminophen (Tylenol Tab) 650 mg Q4HP PRN PO fever/MILD PAIN (PS 1-4) 07/03/19 13:45 07/18/19 10:20 DC 07/17/19 14:49 Acetaminophen (Tylenol Tab) 1,000 mg TID PO 07/18/19 09:00 Cancel Acetaminophen (Tylenol Tab) 1,000 mg TID PO 07/18/19 16:00 07/19/19 09:54 Albuterol/ Ipratropium (Duoneb (Ipr 0.5mg/Alb 2.5mg)) 3 ml Q2HP PRN NEB SOB/WHEEZING 07/03/19 13:45 07/03/19 16:00 DC Albuterol/ Ipratropium (Duoneb (Ipr 0.5mg/Alb 2.5mg)) 3 ml Q4HP PRN NEB SOB/WHEEZING 07/14/19 23:15 07/15/19 00:00 Albuterol/ Ipratropium (Duoneb (Ipr 0.5mg/Alb 2.5mg)) 3 ml QID NEB 07/12/19 11:15 07/12/19 11:51 DC Albuterol/ Ipratropium (Duoneb (Ipr 0.5mg/Alb 2.5mg)) 3 ml RQID NEB 07/12/19 12:00 07/19/19 11:46 Albuterol/ Ipratropium (Duoneb (Ipr 0.5mg/Alb 2.5mg)) 3 ml RTID NEB 07/03/19 14:00 07/12/19 10:40 DC 07/12/19 08:52 Amlodipine Besylate (Norvasc) 10 mg DAILY PO 07/04/19 09:00 07/19/19 09:59 Artificial Tears (Akwa Tears) 2 drop QID PRN OU DRY EYES 07/03/19 17:00 Chlorhexidine Gluconate (Peridex Oral Rinse) 15 ml TID XX 07/09/19 16:00 07/19/19 09:59 Cyanocobalamin (Vitamin B12) 1,000 mcg DAILY PO 07/04/19 09:00 07/03/19 16:39 DC Docusate Sodium (Colace) 100 mg BID PO 07/03/19 21:00 07/04/19 15:50 DC 07/04/19 08:36 Docusate Sodium (Colace) 100 mg BID PO 07/09/19 21:00 07/19/19 09:54 Docusate Sodium (Colace) 100 mg BIDP PRN PO CONSTIPATION 07/04/19 16:00 07/09/19 15:14 DC 07/07/19 20:17 Fat Emulsion Intravenous 500 ml @ 20 mls/hr ONCE@1800 IV 07/17/19 18:00 07/18/19 08:00 Cancel Fluoxetine HCl (PROzac) 20 mg DAILY PO 07/04/19 09:00 07/19/19 09:54 Fluticasone Propionate (Flonase 0.05% Nasal [place]) 1 spray BID NARES 07/15/19 21:00 07/19/19 09:59 Folic Acid (Folic Acid) 1 mg DAILY PO 07/04/19 09:00 07/19/19 09:54 Furosemide (Lasix) 20 mg DAILY PO 07/04/19 10:00 07/12/19 10:42 DC 07/12/19 08:04 Furosemide (Lasix) 20 mg DAILY PO 07/14/19 04:30 07/17/19 13:44 DC 07/17/19 08:18 Furosemide (Lasix) 40 mg DAILY PO 07/18/19 09:00 07/19/19 09:54 Guaifenesin (Robitussin Tab) 400 mg Q4HP PRN PO COUGH 07/03/19 13:45 07/03/19 16:00 DC Guaifenesin (Robitussin Tab) 400 mg TID PO 07/03/19 16:00 07/19/19 09:53 Heparin Sodium (Porcine) (Heparin) 5,000 units Q12H SC 07/03/19 21:00 07/19/19 09:55 Home Med (Med Rec Complete!) ASDIRECTED XX 07/03/19 16:15 07/03/19 16:14 DC Insulin Human Lispro (HumaLOG INSULIN) See Protocol Table Q6H SC 07/17/19 18:00 07/18/19 12:01 Cancel Lidocaine (Lidoderm Patch) 1 patch DAILY TD 07/05/19 09:00 07/18/19 10:20 DC 07/18/19 08:32 Lidocaine (Lidoderm Patch) 1 patch QHS TD 07/18/19 21:00 07/18/19 20:43 Loperamide HCl (Imodium) 2 mg ASDIRECTED PRN PO DIARRHEA 07/04/19 16:00 07/04/19 16:32 Losartan Potassium (Cozaar) 50 mg DAILY PO 07/04/19 09:00 07/19/19 09:59 Menthol/Methyl Salicylate ([place] Cream) TO LOW BACK TID TOP 07/19/19 09:00 07/19/19 12:30 Metoprolol Tartrate (Lopressor) 12.5 mg BID PO 07/04/19 09:00 07/17/19 10:37 DC 07/17/19 08:17 Metoprolol Tartrate (Lopressor) 25 mg BID PO 07/04/19 10:00 07/04/19 09:55 DC Metoprolol Tartrate (Lopressor) 25 mg BID PO 07/17/19 21:00 07/19/19 09:58 Metoprolol Tartrate (Lopressor) 25 mg Q6H PO 07/17/19 12:00 07/17/19 13:44 DC 07/17/19 12:48 Multivitamins 10 ml/Chromium/ Copper/Manganese/ Seleni/Zn 1 ml/ Amino Ac/Electrol/ Dextrose/Calcium 2,011 ml @ 143 mls/hr ONCE@1800 IV 07/17/19 18:00 07/18/19 08:00 Cancel Non-Formulary Medication ( See Comment Field Below ) REMOVE LIDODERM PATCH DAILY XX 07/19/19 09:00 07/19/19 09:00 Non-Formulary Medication ( See Comment Field Below ) REMOVE LIDODERM PATCH DAILY@21 XX 07/05/19 21:00 6/4/20 10:50 DC 07/17/19 21:09 Nystatin (Mycostatin Powder, Nystop) apply to groin BID TOP 07/03/19 21:00 07/19/19 10:01 Pantoprazole Sodium (Protonix) 40 mg DAILY PO 07/04/19 09:00 07/19/19 09:53 Polyethylene Glycol (Miralax) 1 pkt DAILY PRN PO CONSTIPATION 07/03/19 13:45 Potassium Chloride (Micro-K Extencaps) 20 meq DAILY PO 07/16/19 09:00 07/19/19 09:53 Senna (Senokot) 1 tab QHS PO 07/03/19 21:00 07/04/19 15:50 DC 07/03/19 21:05 Senna (Senokot) 1 tab QHS PO 07/09/19 21:00 07/18/19 20:42 Senna (Senokot) 1 tab QHSP PRN PO CONSTIPATION 07/04/19 16:00 07/09/19 15:14 DC 07/07/19 20:18 Sodium Chloride ([place] Nasal [place]) 2 spray TID NA 07/15/19 16:00 07/19/19 09:59 Tramadol HCl (Ultram) 25 mg Q4HP PRN PO MODERATE PAIN (PS 5-7) 07/18/19 10:30 07/19/19 10:40 RAN CHADWICK MD Jul 19, 2019 14:38
[2019-07-19 20:00] VITALS: BP 136/68
[2019-07-19] MEDS: SENNA 8.6 MG TAB (SENOKOT) PO SCH (21:00)
[2019-07-19] MEDS: LIDOCAINE 5% (LIDODERM) PATCH TD SCH (21:15)
[2019-07-20 06:00] VITALS: BP 124/58
[2019-07-20] MEDS: REMEDY PHYTOPLEX Z-GUARD PASTE 113GM TUBE (FROM STOREROOM PRODUCT) TOP SCH ×4 (07:29→22:21)
[2019-07-20] MEDS: IPRATROPIUM 0.5MG/ALBUTEROL 2.5MG INH SOL UD 3ML (DUONEB)(J7620) NEB SCH ×4 (08:36→19:47)
[2019-07-20] MEDS: **NOTE PATIENT COMMENT** MISC XX SCH (09:00)
[2019-07-20] MEDS: HEPARIN SOD (PORCINE) 5000UNITS/ML VIAL (J1644 PER 1000UNITS) SC SCH ×2 (09:03→22:11)
[2019-07-20] MEDS: guaiFENesin 200 MG TAB PO SCH ×3 (09:03→22:13)
[2019-07-20] MEDS: FLUoxetine 20 MG CAP PO SCH (09:04)
[2019-07-20] MEDS: DOCUSATE SODIUM 100 MG CAP PO SCH ×2 (09:04→22:10)
[2019-07-20] MEDS: METOPROLOL TART 25 MG TABLET PO SCH ×2 (09:04→22:21)
[2019-07-20] MEDS: FUROSEMIDE 40 MG TAB PO SCH (09:04)
[2019-07-20] MEDS: POTASSIUM CHLORIDE 10 MEQ SR TABLET PO SCH (09:04)
[2019-07-20] MEDS: PANTOPRAZOLE 40MG TAB (PROTONIX) PO SCH (09:04)
[2019-07-20] MEDS: ACETAMINOPHEN 500 MG TAB PO SCH ×3 (09:05→22:10)
[2019-07-20] MEDS: amLODIPine 10 MG TAB PO SCH (09:05)
[2019-07-20] MEDS: LOSARTAN 50MG TABLET PO SCH (09:05)
[2019-07-20] MEDS: CHLORHEXIDINE GLUCONATE 0.12 % 15ML UDC (PERIDEX ORAL RINSE) XX SCH ×3 (09:06→22:10)
[2019-07-20] MEDS: NYSTATIN 100,000 UNITS/GM TOPICAL PWD 15 GM TOP SCH ×2 (09:06→22:15)
[2019-07-20] MEDS: ANALGESIC BALM CRM 120 GM TOP SCH ×3 (09:06→22:15)
[2019-07-20] MEDS: FOLIC ACID 1 MG TAB PO SCH (09:06)
[2019-07-20] MEDS: SODIUM CHLORIDE NASAL 0.65% SPRAY BTL (OCEAN) SCH ×3 (09:07→22:16)
[2019-07-20] MEDS: FLUTICASONE PROP 0.05% NASAL SPRAY 16 GM (FLONASE) NARES SCH ×2 (09:07→22:11)
[2019-07-20 15:20] VITALS: BP 130/82
[2019-07-20] MEDS: SENNA 8.6 MG TAB (SENOKOT) PO SCH (22:10)
[2019-07-20] MEDS: LIDOCAINE 5% (LIDODERM) PATCH TD SCH (22:14)
[2019-07-20 22:20] VITALS: BP 130/58
[2019-07-21 04:56] VITALS: BP 136/62
[2019-07-21] MEDS: REMEDY PHYTOPLEX Z-GUARD PASTE 113GM TUBE (FROM STOREROOM PRODUCT) TOP SCH ×4 (05:00→20:51)
[2019-07-21] MEDS: IPRATROPIUM 0.5MG/ALBUTEROL 2.5MG INH SOL UD 3ML (DUONEB)(J7620) NEB SCH ×4 (07:34→18:19)
[2019-07-21] MEDS: ANALGESIC BALM CRM 120 GM TOP SCH ×3 (07:59→20:50)
[2019-07-21] MEDS: FLUTICASONE PROP 0.05% NASAL SPRAY 16 GM (FLONASE) NARES SCH ×2 (07:59→20:44)
[2019-07-21] MEDS: guaiFENesin 200 MG TAB PO SCH ×3 (08:00→20:39)
[2019-07-21] MEDS: SODIUM CHLORIDE NASAL 0.65% SPRAY BTL (OCEAN) SCH ×3 (08:00→20:44)
[2019-07-21] MEDS: NYSTATIN 100,000 UNITS/GM TOPICAL PWD 15 GM TOP SCH ×2 (08:00→20:51)
[2019-07-21] MEDS: **NOTE PATIENT COMMENT** MISC XX SCH (08:00)
[2019-07-21] MEDS: FLUoxetine 20 MG CAP PO SCH (08:00)
[2019-07-21] MEDS: CHLORHEXIDINE GLUCONATE 0.12 % 15ML UDC (PERIDEX ORAL RINSE) XX SCH ×3 (08:00→20:39)
[2019-07-21] MEDS: HEPARIN SOD (PORCINE) 5000UNITS/ML VIAL (J1644 PER 1000UNITS) SC SCH ×2 (08:01→20:39)
[2019-07-21] MEDS: FOLIC ACID 1 MG TAB PO SCH (08:01)
[2019-07-21] MEDS: LOSARTAN 50MG TABLET PO SCH (08:01)
[2019-07-21] MEDS: POTASSIUM CHLORIDE 10 MEQ SR TABLET PO SCH (08:01)
[2019-07-21] MEDS: PANTOPRAZOLE 40MG TAB (PROTONIX) PO SCH (08:02)
[2019-07-21] MEDS: FUROSEMIDE 40 MG TAB PO SCH (08:02)
[2019-07-21] MEDS: amLODIPine 10 MG TAB PO SCH (08:02)
[2019-07-21] MEDS: METOPROLOL TART 25 MG TABLET PO SCH ×2 (08:02→20:40)
[2019-07-21] MEDS: ACETAMINOPHEN 500 MG TAB PO SCH ×3 (08:03→20:44)
[2019-07-21] MEDS: DOCUSATE SODIUM 100 MG CAP PO SCH ×2 (08:03→20:40)
[2019-07-21 14:00] VITALS: BP 114/56
[2019-07-21 20:00] VITALS: BP 118/55
[2019-07-21] MEDS: SENNA 8.6 MG TAB (SENOKOT) PO SCH (20:40)
[2019-07-21] MEDS: LIDOCAINE 5% (LIDODERM) PATCH TD SCH (20:45)
[2019-07-22] MEDS: REMEDY PHYTOPLEX Z-GUARD PASTE 113GM TUBE (FROM STOREROOM PRODUCT) TOP SCH ×3 (05:31→16:32)
[2019-07-22 06:00] VITALS: BP 120/50
[2019-07-22] MEDS: IPRATROPIUM 0.5MG/ALBUTEROL 2.5MG INH SOL UD 3ML (DUONEB)(J7620) NEB SCH ×4 (06:22→19:29)
[2019-07-22 06:51] LABS: BASO # 0.1 10^3/uL (0.0-0.2); BASO % 0.9 % (0.0-1.0); EOS # 1.3 10^3/uL (0.0-0.5); HEMATOCRIT 41.5 % (36.0-47.0); HEMOGLOBIN 13.7 g/dl (12.0-15.5); LYMPH # 1.8 10^3/uL (1.5-5.0); LYMPH % 24.3 % (24.0-44.0); MEAN CORPUSCULAR HEMOGLOBIN 30.8 pg (27.0-33.0); MEAN CORPUSCULAR VOLUME 93.3 fl (80.0-96.0); MONO # 0.7 10^3/uL (0.0-0.8); MONO % 9.2 % (0.0-5.0); NEUTROPHILS # 3.6 10^3/uL (1.5-8.5); NEUTROPHILS % 47.9 % (36.0-66.0); PLATELET COUNT, AUTOMATED 192 10^3/uL (150-450); RED BLOOD COUNT 4.45 10^6/uL (4.00-5.40); WHITE BLOOD COUNT 7.4 10^3/uL (4.0-10.0)
[2019-07-22 07:15] LABS: CALCIUM LEVEL 9.7 MG/DL (8.8-10.2); CREATININE FOR GFR 1.05 MG/DL (0.55-1.30); POTASSIUM SERUM 3.8 MEQ/L (3.5-5.1)
[2019-07-22] MEDS: DOCUSATE SODIUM 100 MG CAP PO SCH ×2 (08:34→20:17)
[2019-07-22] MEDS: guaiFENesin 200 MG TAB PO SCH ×3 (08:34→20:14)
[2019-07-22] MEDS: POTASSIUM CHLORIDE 10 MEQ SR TABLET PO SCH (08:34)
[2019-07-22] MEDS: FLUoxetine 20 MG CAP PO SCH (08:34)
[2019-07-22] MEDS: PANTOPRAZOLE 40MG TAB (PROTONIX) PO SCH (08:35)
[2019-07-22] MEDS: FOLIC ACID 1 MG TAB PO SCH (08:35)
[2019-07-22] MEDS: HEPARIN SOD (PORCINE) 5000UNITS/ML VIAL (J1644 PER 1000UNITS) SC SCH ×2 (08:35→20:14)
[2019-07-22] MEDS: CHLORHEXIDINE GLUCONATE 0.12 % 15ML UDC (PERIDEX ORAL RINSE) XX SCH ×3 (08:35→20:14)
[2019-07-22] MEDS: FUROSEMIDE 40 MG TAB PO SCH (08:35)
[2019-07-22] MEDS: ACETAMINOPHEN 500 MG TAB PO SCH ×3 (08:36→20:17)
[2019-07-22] MEDS: FLUTICASONE PROP 0.05% NASAL SPRAY 16 GM (FLONASE) NARES SCH ×2 (08:37→20:13)
[2019-07-22] MEDS: SODIUM CHLORIDE NASAL 0.65% SPRAY BTL (OCEAN) SCH ×3 (08:37→20:13)
[2019-07-22] MEDS: ANALGESIC BALM CRM 120 GM TOP SCH ×3 (08:38→20:13)
[2019-07-22] MEDS: NYSTATIN 100,000 UNITS/GM TOPICAL PWD 15 GM TOP SCH ×2 (08:38→20:13)
[2019-07-22] MEDS: **NOTE PATIENT COMMENT** MISC XX SCH (08:39)
[2019-07-22] MEDS: METOPROLOL TART 25 MG TABLET PO SCH ×2 (08:40→20:17)
[2019-07-22] MEDS: amLODIPine 10 MG TAB PO SCH (08:40)
[2019-07-22] MEDS: LOSARTAN 50MG TABLET PO SCH (08:41)
--- NOTE | 2019-07-22 11:19 | IPNPDOC ---
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 She is agreeable to using a hospital bed. REVIEW OF SYSTEMS: The following is a completed review of systems and has been reviewed. Review of systems otherwise unremarkable. PAIN: Patient self reports no pain EYES: No recent vision changes EARS, NOSE, & THROAT: No throat pain, denies dysphagia CARDIOVASCULAR: denies chest pain or palpitations PULMONARY: Denies shortness of breath, +chronic cough (improving) GASTROINTESTINAL: Denies constipation/diarrhea GENITOURINARY: denies dysuria, however +incontinence MUSCULOSKELETAL: left sided paresis NEUROLOGICAL: left sided paresis HEMATOLOGICAL: denies easy bruising SKIN: sacral ulcer PSYCHIATRIC: Unremarkable All other review of systems found to be negative. PHYSICAL EXAMINATION: VITAL SIGNS: Please see below. GENERAL: Pleasant and cooperative. No acute distress. obese HEENT: PERRL. Extraocular movements intact. Clear conjunctiva CARDIOVASCULAR: Regular rate and rhythm. No murmurs, rubs, or gallops LUNGS: CTA, no wheeze or crackles ABDOMEN: Soft, nontender, nondistended. Positive bowel sounds. Normal active bowel sounds NEUROLOGICAL: Alert and oriented times three. Cranial nerves II through XII grossly intact. Sensation grossly intact to light touch in all 4 limbs, with extinction to touch on the left EXTREMITIES: 5\5 strength right upper extremities. 3/5 strength left UE 4-\5 strength right lower extremity. 3/5 strength in left lower extremity. +bilat LE edema with mild erythema of anterior calves SKIN: sacral ulcer in gluteal fold (healed) ASSESSMENT:84-year-old F with past medical history of HTN who presents status post right basal ganglia hemorrhagic stroke PLAN: 1. 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 Neuro: s/p right basal ganglia hemorrhagic stroke-c/u statin and BP control for secondary stroke prevention -prozac for motor recovery 3. Cardiac: hx of HTN c/u amlodipine and Cozaar, atenolol on hold due to recent bradycardia, will c/u Lasix for bilat edema (increase to 40mg as edema) and increased metoprolol to 25mg BID- c/u fluid restrict and order daily weights as likely some degree of chronic CHF with cardiomegaly noted on CXR 07/11/19 -medicine consult to assist in overall management 4. Resp: encourage incentive spirometry, duonebs and and guaifenesin -patient with chronic cough, CXR 07/11/19 and 07/15/19 no infiltrate, no leukocytosis-per patient her cough is getting better,c/u flonase and nasal saline for probable post nasal drip -BNP 07/11/19 low, no concern for infection, no fevers or leukocytosis -02 ordered prn and nocturnal as patient with RODOLFO and has CPAP at home, however tends not to use it per daughter 5. GI ppx: protonix 6. DVT ppx: heparin and teds -dopplers negative 7. Skin: barrier cream and turn q2h in bed, heel offloaders and Acewraps for lymphedema, optifoam to heels for prevention 8. Pain: low back pain without radiation or new bowel/bladder symptoms, c/u tylenol 1000mg TID, lidoderm patch qHS and k-pad during the day, menthol salicylate during the day as well-patient reporting back cream is helpful 9. Hypokalemia- resolved 10. Vitamin B12 deficiency- s/p injection 07-17-19 11. Dispo: to home pending insurance coverage, patient continues to benefit from intensive level of rehab DME- Patient will benefit from a hospital bed as she has significant lower extremity edema and decreased mobility due to her recent stroke. She will need a hospital bed to help elevate her legs and for frequent repositioning to avoid skin break down. Patient also has a chronic cough with symptoms consistent with chronic CHF and will need the head of the bed elevated as well to prevent develo ping pulmonary edema and pneumonia. Allergies Coded Allergies: cephalexin (Verified Allergy, Unknown, TONGUE SWELLS, 07/03/19) Vital Signs Vital Signs Date Time Temp Pulse Resp B/P (MAP) Pulse Ox O2 Delivery O2 Flow Rate FiO2 07/22/19 08:40 66 131/72 07/22/19 06:00 97.9 18 93 Room Air Laboratory Data CBC/BMP Laboratory Tests 07/22/19 06:10 Labs 24H Laboratory Tests 2 07/22/19 06:10: Immature Granulocyte % (Auto) 0.7, Neutrophils (%) (Auto) 47.9, Lymphocytes (%) (Auto) 24.3, Monocytes (%) (Auto) 9.2H, Eosinophils (%) (Auto) 17.0H, Basophils (%) (Auto) 0.9, Neutrophils # (Auto) 3.6, Lymphocytes # (Auto) 1.8, Monocytes # (Auto) 0.7, Eosinophils # (Auto) 1.3H, Basophils # (Auto) 0.1, Nucleated Red Blood Cells % (auto) 0.0, Anion Gap 8, Glomerular Filtration Rate 53.0, Calcium Level 9.7 Current Medications Current Medications Current Medications Medications (Trade) Dose Ordered Sig/Brenden Route PRN Reason Start Time Stop Time Status Last Admin Dose Admin Acetaminophen (Tylenol Tab) 650 mg Q4HP PRN PO fever/MILD PAIN (PS 1-4) 07/03/19 13:45 07/18/19 10:20 DC 07/17/19 14:49 Acetaminophen (Tylenol Tab) 1,000 mg TID PO 07/18/19 09:00 Cancel Acetaminophen (Tylenol Tab) 1,000 mg TID PO 07/18/19 16:00 07/22/19 08:36 Albuterol/ Ipratropium (Duoneb (Ipr 0.5mg/Alb 2.5mg)) 3 ml Q2HP PRN NEB SOB/WHEEZING 07/03/19 13:45 07/03/19 16:00 DC Albuterol/ Ipratropium (Duoneb (Ipr 0.5mg/Alb 2.5mg)) 3 ml Q4HP PRN NEB SOB/WHEEZING 07/14/19 23:15 07/15/19 00:00 Albuterol/ Ipratropium (Duoneb (Ipr 0.5mg/Alb 2.5mg)) 3 ml QID NEB 07/12/19 11:15 07/12/19 11:51 DC Albuterol/ Ipratropium (Duoneb (Ipr 0.5mg/Alb 2.5mg)) 3 ml RQID NEB 07/12/19 12:00 07/22/19 06:22 Albuterol/ Ipratropium (Duoneb (Ipr 0.5mg/Alb 2.5mg)) 3 ml RTID NEB 07/03/19 14:00 07/12/19 10:40 DC 07/12/19 08:52 Amlodipine Besylate (Norvasc) 10 mg DAILY PO 07/04/19 09:00 07/22/19 08:40 Artificial Tears (Akwa Tears) 2 drop QID PRN OU DRY EYES 07/03/19 17:00 Chlorhexidine Gluconate (Peridex Oral Rinse) 15 ml TID XX 07/09/19 16:00 07/22/19 08:35 Cyanocobalamin (Vitamin B12) 1,000 mcg DAILY PO 07/04/19 09:00 07/03/19 16:39 DC Docusate Sodium (Colace) 100 mg BID PO 07/03/19 21:00 07/04/19 15:50 DC 07/04/19 08:36 Docusate Sodium (Colace) 100 mg BID PO 07/09/19 21:00 07/22/19 08:34 Docusate Sodium (Colace) 100 mg BIDP PRN PO CONSTIPATION 07/04/19 16:00 07/09/19 15:14 DC 07/07/19 20:17 Fat Emulsion Intravenous 500 ml @ 20 mls/hr ONCE@1800 IV 07/17/19 18:00 07/18/19 08:00 Cancel Fluoxetine HCl (PROzac) 20 mg DAILY PO 07/04/19 09:00 07/22/19 08:34 Fluticasone Propionate (Flonase 0.05% Nasal [place]) 1 spray BID NARES 07/15/19 21:00 07/22/19 08:37 Folic Acid (Folic Acid) 1 mg DAILY PO 07/04/19 09:00 07/22/19 08:35 Furosemide (Lasix) 20 mg DAILY PO 07/04/19 10:00 07/12/19 10:42 DC 07/12/19 08:04 Furosemide (Lasix) 20 mg DAILY PO 07/14/19 04:30 07/17/19 13:44 DC 07/17/19 08:18 Furosemide (Lasix) 40 mg DAILY PO 07/18/19 09:00 07/22/19 08:35 Guaifenesin (Robitussin Tab) 400 mg Q4HP PRN PO COUGH 07/03/19 13:45 07/03/19 16:00 DC Guaifenesin (Robitussin Tab) 400 mg TID PO 07/03/19 16:00 07/22/19 08:34 Heparin Sodium (Porcine) (Heparin) 5,000 units Q12H SC 07/03/19 21:00 07/22/19 08:35 Home Med (Med Rec Complete!) ASDIRECTED XX 07/03/19 16:15 07/03/19 16:14 DC Insulin Human Lispro (HumaLOG INSULIN) See Protocol Table Q6H SC 07/17/19 18:00 07/18/19 12:01 Cancel Lidocaine (Lidoderm Patch) 1 patch DAILY TD 07/05/19 09:00 07/18/19 10:20 DC 07/18/19 08:32 Lidocaine (Lidoderm Patch) 1 patch QHS TD 07/18/19 21:00 07/21/19 20:45 Loperamide HCl (Imodium) 2 mg ASDIRECTED PRN PO DIARRHEA 07/04/19 16:00 07/04/19 16:32 Losartan Potassium (Cozaar) 50 mg DAILY PO 07/04/19 09:00 07/22/19 08:41 Menthol/Methyl Salicylate (Bengay Cream) TO LOW BACK TID TOP 07/19/19 09:00 07/22/19 08:38 Metoprolol Tartrate (Lopressor) 12.5 mg BID PO 07/04/19 09:00 07/17/19 10:37 DC 07/17/19 08:17 Metoprolol Tartrate (Lopressor) 25 mg BID PO 07/04/19 10:00 07/04/19 09:55 DC Metoprolol Tartrate (Lopressor) 25 mg BID PO 07/17/19 21:00 07/22/19 08:40 Metoprolol Tartrate (Lopressor) 25 mg Q6H PO 07/17/19 12:00 07/17/19 13:44 DC 07/17/19 12:48 Miscellaneous (Unresolved Clarification Entry) SEE LABEL COMMENTS DAILY XX 07/21/19 09:00 Multivitamins 10 ml/Chromium/ Copper/Manganese/ Seleni/Zn 1 ml/ Amino Ac/Electrol/ Dextrose/Calcium 2,011 ml @ 143 mls/hr ONCE@1800 IV 07/17/19 18:00 07/18/19 08:00 Cancel Non-Formulary Medication ( See Comment Field Below ) REMOVE LIDODERM PATCH DAILY XX 07/19/19 09:00 07/22/19 08:39 Non-Formulary Medication ( See Comment Field Below ) REMOVE LIDODERM PATCH DAILY@ XX 07/05/19 21:00 07/18/19 10:50 DC 07/17/19 21:09 Nystatin (Mycostatin Powder, Nystop) apply to groin BID TOP 07/03/19 21:00 07/22/19 08:38 Pantoprazole Sodium (Protonix) 40 mg DAILY PO 07/04/19 09:00 07/22/19 08:35 Polyethylene Glycol (Miralax) 1 pkt DAILY PRN PO CONSTIPATION 07/03/19 13:45 Potassium Chloride (Micro-K Extencaps) 20 meq DAILY PO 07/16/19 09:00 07/22/19 08:34 Senna (Senokot) 1 tab QHS PO 07/03/19 21:00 07/04/19 15:50 DC 07/03/19 21:05 Senna (Senokot) 1 tab QHS PO 07/09/19 21:00 07/20/19 22:10 Senna (Senokot) 1 tab QHSP PRN PO CONSTIPATION 07/04/19 16:00 07/09/19 15:14 DC 07/07/19 20:18 Sodium Chloride ([place] Nasal [place]) 2 spray TID NA 07/15/19 16:00 07/22/19 08:37 Tramadol HCl (Ultram) 25 mg Q4HP PRN PO MODERATE PAIN (PS 5-7) 07/18/19 10:30 07/19/19 10:40 RAN CHADWICK MD Jul 22, 2019 11:19
[2019-07-22 14:00] VITALS: BP 125/64
[2019-07-22 20:00] VITALS: BP 134/67
[2019-07-22] MEDS: LIDOCAINE 5% (LIDODERM) PATCH TD SCH (20:13)
[2019-07-22] MEDS: SENNA 8.6 MG TAB (SENOKOT) PO SCH (20:17)
[2019-07-23] MEDS: REMEDY PHYTOPLEX Z-GUARD PASTE 113GM TUBE (FROM STOREROOM PRODUCT) TOP SCH ×4 (00:06→16:34)
[2019-07-23 06:00] VITALS: BP 132/62
[2019-07-23] MEDS: IPRATROPIUM 0.5MG/ALBUTEROL 2.5MG INH SOL UD 3ML (DUONEB)(J7620) NEB SCH ×4 (06:00→19:48)
[2019-07-23] MEDS: CHLORHEXIDINE GLUCONATE 0.12 % 15ML UDC (PERIDEX ORAL RINSE) XX SCH ×3 (08:03→20:34)
[2019-07-23] MEDS: FLUoxetine 20 MG CAP PO SCH (08:04)
[2019-07-23] MEDS: PANTOPRAZOLE 40MG TAB (PROTONIX) PO SCH (08:04)
[2019-07-23] MEDS: guaiFENesin 200 MG TAB PO SCH ×3 (08:04→20:33)
[2019-07-23] MEDS: DOCUSATE SODIUM 100 MG CAP PO SCH ×2 (08:04→20:33)
[2019-07-23] MEDS: HEPARIN SOD (PORCINE) 5000UNITS/ML VIAL (J1644 PER 1000UNITS) SC SCH ×2 (08:04→20:32)
[2019-07-23] MEDS: FUROSEMIDE 40 MG TAB PO SCH (08:04)
[2019-07-23] MEDS: FOLIC ACID 1 MG TAB PO SCH (08:04)
[2019-07-23] MEDS: LOSARTAN 50MG TABLET PO SCH (08:05)
[2019-07-23] MEDS: METOPROLOL TART 25 MG TABLET PO SCH ×2 (08:05→20:33)
[2019-07-23] MEDS: amLODIPine 10 MG TAB PO SCH (08:05)
[2019-07-23] MEDS: POTASSIUM CHLORIDE 10 MEQ SR TABLET PO SCH (08:05)
[2019-07-23] MEDS: SODIUM CHLORIDE NASAL 0.65% SPRAY BTL (OCEAN) SCH ×3 (08:06→20:33)
[2019-07-23] MEDS: ACETAMINOPHEN 500 MG TAB PO SCH ×3 (08:06→20:33)
[2019-07-23] MEDS: NYSTATIN 100,000 UNITS/GM TOPICAL PWD 15 GM TOP SCH ×2 (08:07→20:33)
[2019-07-23] MEDS: **NOTE PATIENT COMMENT** MISC XX SCH (08:07)
[2019-07-23] MEDS: ANALGESIC BALM CRM 120 GM TOP SCH ×3 (08:07→20:34)
[2019-07-23] MEDS: FLUTICASONE PROP 0.05% NASAL SPRAY 16 GM (FLONASE) NARES SCH ×2 (08:07→20:34)
[2019-07-23] MEDS ORDERED: ESOM0.1C PO (10:20)
[2019-07-23] MEDS ORDERED: AMLO10TA5 PO (10:20)
[2019-07-23] MEDS ORDERED: FLUO20CA22 PO (10:20)
[2019-07-23] MEDS ORDERED: FURO40TA2 PO (10:20)
[2019-07-23] MEDS ORDERED: FLUTISP NARES (10:20)
[2019-07-23] MEDS ORDERED: METO1TAB87 PO (10:20)
[2019-07-23] MEDS ORDERED: LOSA50TA88 PO (10:20)
[2019-07-23] MEDS ORDERED: KLOR10TA76 PO (10:20)
[2019-07-23] MEDS ORDERED: FOLI1TAB11 PO (10:20)
[2019-07-23 14:00] VITALS: BP 175/66
--- NOTE | 2019-07-23 15:05 | IPNPDOC ---
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 She states she still feels ready to go home tomorrow. REVIEW OF SYSTEMS: The following is a completed review of systems and has been reviewed. Review of systems otherwise unremarkable. PAIN: Patient self reports no pain EYES: No recent vision changes EARS, NOSE, & THROAT: No throat pain, denies dysphagia CARDIOVASCULAR: denies chest pain or palpitations PULMONARY: Denies shortness of breath, +chronic cough (improving) GASTROINTESTINAL: Denies constipation/diarrhea GENITOURINARY: denies dysuria, however +incontinence MUSCULOSKELETAL: left sided paresis NEUROLOGICAL: left sided paresis HEMATOLOGICAL: denies easy bruising SKIN: sacral ulcer PSYCHIATRIC: Unremarkable All other review of systems found to be negative. PHYSICAL EXAMINATION: VITAL SIGNS: Please see below. GENERAL: Pleasant and cooperative. No acute distress. obese HEENT: PERRL. Extraocular movements intact. Clear conjunctiva CARDIOVASCULAR: Regular rate and rhythm. No murmurs, rubs, or gallops LUNGS: CTA, no wheeze or crackles ABDOMEN: Soft, nontender, nondistended. Positive bowel sounds. Normal active bowel sounds NEUROLOGICAL: Alert and oriented times three. Cranial nerves II through XII grossly intact. Sensation grossly intact to light touch in all 4 limbs, with extinction to touch on the left EXTREMITIES: 5\5 strength right upper extremities. 3/5 strength left UE 4-\5 strength right lower extremity. 4/5 strength in left lower extremity. +bilat LE edema with mild erythema of anterior calves Knees exam- non-TTP of patellar facets, medial/lateral joint line, no warmth or erythema SKIN: sacral ulcer in gluteal fold (healed) ASSESSMENT:84-year-old F with past medical history of HTN who presents status post right basal ganglia hemorrhagic stroke PLAN: 1. 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 Neuro: s/p right basal ganglia hemorrhagic stroke-c/u statin and BP control for secondary stroke prevention -prozac for motor recovery 3. Cardiac: hx of HTN c/u amlodipine and Cozaar, atenolol on hold due to recent bradycardia, will c/u Lasix for bilat edema (increase to 40mg as edema) and increased metoprolol to 25mg BID- c/u fluid restrict and order daily weights as likely some degree of chronic CHF with cardiomegaly noted on CXR 07/11/19 -medicine consult to assist in overall management 4. Resp: encourage incentive spirometry, duonebs and and guaifenesin -patient with chronic cough, CXR 07/11/19 and 07/15/19 no infiltrate, no leukocytosis-per patient her cough is getting better,c/u flonase and nasal saline for probable post nasal drip -BNP 07/11/19 low, no concern for infection, no fevers or leukocytosis -02 ordered prn and nocturnal as patient with RODOLFO and has CPAP at home, however tends not to use it per daughter 5. GI ppx: protonix 6. DVT ppx: heparin and teds -inital dopplers negative, repeat today prior to d/c 7. Skin: barrier cream and turn q2h in bed, heel offloaders and Acewraps for lymphedema, optifoam to heels for prevention 8. Pain: low back pain without radiation or new bowel/bladder symptoms, c/u tylenol 1000mg TID, lidoderm patch qHS and k-pad during the day, menthol salicylate during the day as well-patient reporting back cream is helpful, patient denies increased back pain following fall today in therapy, she also did not endorse knee pain at the time of my eval with no notable new/worsening effusion (patient with baseline edema) 9. Hypokalemia- resolved 10. Vitamin B12 deficiency- s/p injection 07-17-19 11. Dispo: 07-24-19 to home, progressing towards goals Allergies Coded Allergies: cephalexin (Verified Allergy, Unknown, TONGUE SWELLS, 07/03/19) Vital Signs Vital Signs Date Time Temp Pulse Resp B/P (MAP) Pulse Ox O2 Delivery O2 Flow Rate FiO2 07/23/19 14:00 98.5 62 19 175/66 (102) 95 Room Air Current Medications Current Medications Current Medications Medications (Trade) Dose Ordered Sig/Brenden Route PRN Reason Start Time Stop Time Status Last Admin Dose Admin Acetaminophen (Tylenol Tab) 650 mg Q4HP PRN PO fever/MILD PAIN (PS 1-4) 07/03/19 13:45 07/18/19 10:20 DC 07/17/19 14:49 Acetaminophen (Tylenol Tab) 1,000 mg TID PO 07/18/19 09:00 Cancel Acetaminophen (Tylenol Tab) 1,000 mg TID PO 07/18/19 16:00 07/22/19 20:17 Albuterol/ Ipratropium (Duoneb (Ipr 0.5mg/Alb 2.5mg)) 3 ml Q2HP PRN NEB SOB/WHEEZING 07/03/19 13:45 07/03/19 16:00 DC Albuterol/ Ipratropium (Duoneb (Ipr 0.5mg/Alb 2.5mg)) 3 ml Q4HP PRN NEB SOB/WHEEZING 07/14/19 23:15 07/15/19 00:00 Albuterol/ Ipratropium (Duoneb (Ipr 0.5mg/Alb 2.5mg)) 3 ml QID NEB 07/12/19 11:15 07/12/19 11:51 DC Albuterol/ Ipratropium (Duoneb (Ipr 0.5mg/Alb 2.5mg)) 3 ml RQID NEB 07/12/19 12:00 07/23/19 12:40 Albuterol/ Ipratropium (Duoneb (Ipr 0.5mg/Alb 2.5mg)) 3 ml RTID NEB 07/03/19 14:00 07/12/19 10:40 DC 07/12/19 08:52 Amlodipine Besylate (Norvasc) 10 mg DAILY PO 07/04/19 09:00 07/23/19 08:05 Artificial Tears (Akwa Tears) 2 drop QID PRN OU DRY EYES 07/03/19 17:00 Chlorhexidine Gluconate (Peridex Oral Rinse) 15 ml TID XX 07/09/19 16:00 07/23/19 08:03 Cyanocobalamin (Vitamin B12) 1,000 mcg DAILY PO 07/04/19 09:00 07/03/19 16:39 DC Docusate Sodium (Colace) 100 mg BID PO 07/03/19 21:00 07/04/19 15:50 DC 07/04/19 08:36 Docusate Sodium (Colace) 100 mg BID PO 07/09/19 21:00 07/23/19 08:04 Docusate Sodium (Colace) 100 mg BIDP PRN PO CONSTIPATION 07/04/19 16:00 07/09/19 15:14 DC 07/07/19 20:17 Fat Emulsion Intravenous 500 ml @ 20 mls/hr ONCE@1800 IV 07/17/19 18:00 07/18/19 08:00 Cancel Fluoxetine HCl (PROzac) 20 mg DAILY PO 07/04/19 09:00 07/23/19 08:04 Fluticasone Propionate (Flonase 0.05% Nasal [place]) 1 spray BID NARES 07/15/19 21:00 07/23/19 08:07 Folic Acid (Folic Acid) 1 mg DAILY PO 07/04/19 09:00 07/23/19 08:04 Furosemide (Lasix) 20 mg DAILY PO 07/04/19 10:00 07/12/19 10:42 DC 07/12/19 08:04 Furosemide (Lasix) 20 mg DAILY PO 07/14/19 04:30 07/17/19 13:44 DC 07/17/19 08:18 Furosemide (Lasix) 40 mg DAILY PO 07/18/19 09:00 07/23/19 08:04 Guaifenesin (Robitussin Tab) 400 mg Q4HP PRN PO COUGH 07/03/19 13:45 07/03/19 16:00 DC Guaifenesin (Robitussin Tab) 400 mg TID PO 07/03/19 16:00 07/23/19 08:04 Heparin Sodium (Porcine) (Heparin) 5,000 units Q12H SC 07/03/19 21:00 07/23/19 08:04 Home Med (Med Rec Complete!) ASDIRECTED XX 07/03/19 16:15 07/03/19 16:14 DC Insulin Human Lispro (HumaLOG INSULIN) See Protocol Table Q6H SC 07/17/19 18:00 07/18/19 12:01 Cancel Lidocaine (Lidoderm Patch) 1 patch DAILY TD 07/05/19 09:00 07/18/19 10:20 DC 07/18/19 08:32 Lidocaine (Lidoderm Patch) 1 patch QHS TD 07/18/19 21:00 07/22/19 20:13 Loperamide HCl (Imodium) 2 mg ASDIRECTED PRN PO DIARRHEA 07/04/19 16:00 07/04/19 16:32 Losartan Potassium (Cozaar) 50 mg DAILY PO 07/04/19 09:00 07/23/19 08:05 Menthol/Methyl Salicylate (Bengay Cream) TO LOW BACK TID TOP 07/19/19 09:00 07/23/19 08:07 Metoprolol Tartrate (Lopressor) 12.5 mg BID PO 07/04/19 09:00 07/17/19 10:37 DC 07/17/19 08:17 Metoprolol Tartrate (Lopressor) 25 mg BID PO 07/04/19 10:00 07/04/19 09:55 DC Metoprolol Tartrate (Lopressor) 25 mg BID PO 07/17/19 21:00 07/23/19 08:05 Metoprolol Tartrate (Lopressor) 25 mg Q6H PO 07/17/19 12:00 07/17/19 13:44 DC 07/17/19 12:48 Miscellaneous (Unresolved Clarification Entry) SEE LABEL COMMENTS DAILY XX 07/21/19 09:00 Multivitamins 10 ml/Chromium/ Copper/Manganese/ Seleni/Zn 1 ml/ Amino Ac/Electrol/ Dextrose/Calcium 2,011 ml @ 143 mls/hr ONCE@1800 IV 07/17/19 18:00 07/18/19 08:00 Cancel Non-Formulary Medication ( See Comment Field Below ) REMOVE LIDODERM PATCH DAILY XX 07/19/19 09:00 07/23/19 08:07 Non-Formulary Medication ( See Comment Field Below ) REMOVE LIDODERM PATCH DAILY@21 XX 07/05/19 21:00 07/18/19 10:50 DC 07/17/19 21:09 Nystatin (Mycostatin Powder, Nystop) apply to groin BID TOP 07/03/19 21:00 07/23/19 08:07 Pantoprazole Sodium (Protonix) 40 mg DAILY PO 07/04/19 09:00 07/23/19 08:04 Polyethylene Glycol (Miralax) 1 pkt DAILY PRN PO CONSTIPATION 07/03/19 13:45 Potassium Chloride (Micro-K Extencaps) 20 meq DAILY PO 07/16/19 09:00 07/23/19 08:05 Senna (Senokot) 1 tab QHS PO 07/03/19 21:00 07/04/19 15:50 DC 07/03/19 21:05 Senna (Senokot) 1 tab QHS PO 07/09/19 21:00 07/22/19 20:17 Senna (Senokot) 1 tab QHSP PRN PO CONSTIPATION 07/04/19 16:00 07/09/19 15:14 DC 07/07/19 20:18 Sodium Chloride ([place] Nasal [place]) 2 spray TID NA 07/15/19 16:00 07/23/19 08:06 Tramadol HCl (Ultram) 25 mg Q4HP PRN PO MODERATE PAIN (PS 5-7) 07/18/19 10:30 07/19/19 10:40 RAN CHADWICK MD Jul 23, 2019 15:05
--- NOTE | 2019-07-23 16:47 | REP ---
Bilateral lower extremity Duplex Doppler venous ultrasound: Real time compression and duplex Doppler interrogation of the bilateral lower extremity deep venous system is performed. Bilaterally, the common femoral, superficial femoral and popliteal veins are fully compressible with transducer pressure and demonstrate normal spontaneous and phasic flow, without evidence of deep venous thrombosis. Impression: No evidence of deep venous thrombosis of the bilateral lower extremity femoral popliteal venous system. Electronically Signed by Diogenes Esparza MD 07/23/2019 04:39 P
[2019-07-23 20:00] VITALS: BP 140/70
[2019-07-23] MEDS: SENNA 8.6 MG TAB (SENOKOT) PO SCH (20:32)
[2019-07-23] MEDS: LIDOCAINE 5% (LIDODERM) PATCH TD SCH (20:34)
[2019-07-24] MEDS: REMEDY PHYTOPLEX Z-GUARD PASTE 113GM TUBE (FROM STOREROOM PRODUCT) TOP SCH ×4 (00:12→18:00)
[2019-07-24 06:00] VITALS: BP 140/80
[2019-07-24] MEDS: IPRATROPIUM 0.5MG/ALBUTEROL 2.5MG INH SOL UD 3ML (DUONEB)(J7620) NEB SCH ×3 (06:16→16:34)
[2019-07-24 07:18] LABS: BASO # 0.1 10^3/uL (0.0-0.2); BASO % 0.7 % (0.0-1.0); EOS # 0.6 10^3/uL (0.0-0.5); EOS % 8.6 % (0.0-3.0); HEMATOCRIT 38.8 % (36.0-47.0); HEMOGLOBIN 12.9 g/dl (12.0-15.5); LYMPH # 1.8 10^3/uL (1.5-5.0); LYMPH % 26.8 % (24.0-44.0); MEAN CORPUSCULAR HEMOGLOBIN 30.9 pg (27.0-33.0); MEAN CORPUSCULAR HGB CONC 33.2 g/dl (32.0-36.5); MEAN CORPUSCULAR VOLUME 92.8 fl (80.0-96.0); MONO # 0.5 10^3/uL (0.0-0.8); MONO % 7.7 % (0.0-5.0); NEUTROPHILS # 3.8 10^3/uL (1.5-8.5); NEUTROPHILS % 55.6 % (36.0-66.0); PLATELET COUNT, AUTOMATED 166 10^3/uL (150-450); RED BLOOD COUNT 4.18 10^6/uL (4.00-5.40); WHITE BLOOD COUNT 6.8 10^3/uL (4.0-10.0)
[2019-07-24 07:50] LABS: CALCIUM LEVEL 9.6 MG/DL (8.8-10.2); CREATININE FOR GFR 0.99 MG/DL (0.55-1.30); GLOMERULAR FILTRATION RATE 56.8 (>32); POTASSIUM SERUM 3.4 MEQ/L (3.5-5.1)
[2019-07-24] MEDS: guaiFENesin 200 MG TAB PO SCH ×2 (09:00→16:00)
[2019-07-24] MEDS: ACETAMINOPHEN 500 MG TAB PO SCH ×3 (09:00→18:49)
[2019-07-24] MEDS: HEPARIN SOD (PORCINE) 5000UNITS/ML VIAL (J1644 PER 1000UNITS) SC SCH (09:00)
[2019-07-24] MEDS: **NOTE PATIENT COMMENT** MISC XX SCH (09:00)
[2019-07-24] MEDS: SODIUM CHLORIDE NASAL 0.65% SPRAY BTL (OCEAN) SCH ×2 (09:00→16:00)
[2019-07-24] MEDS: ANALGESIC BALM CRM 120 GM TOP SCH ×2 (09:00→16:00)
[2019-07-24] MEDS ORDERED: KLOR10TA76 PO ×2 (09:59→10:01)
[2019-07-24] MEDS: FLUoxetine 20 MG CAP PO SCH (10:08)
[2019-07-24] MEDS: FUROSEMIDE 40 MG TAB PO SCH (10:08)
[2019-07-24] MEDS: LOSARTAN 50MG TABLET PO SCH (10:08)
[2019-07-24] MEDS: POTASSIUM CHLORIDE 10 MEQ SR TABLET PO SCH (10:09)
[2019-07-24 10:10] VITALS: BP 140/80
[2019-07-24] MEDS: METOPROLOL TART 25 MG TABLET PO SCH (10:10)
[2019-07-24] MEDS: FOLIC ACID 1 MG TAB PO SCH (10:10)
[2019-07-24] MEDS: DOCUSATE SODIUM 100 MG CAP PO SCH (10:10)
[2019-07-24] MEDS: amLODIPine 10 MG TAB PO SCH (10:10)
[2019-07-24] MEDS: PANTOPRAZOLE 40MG TAB (PROTONIX) PO SCH (10:10)
[2019-07-24] MEDS: FLUTICASONE PROP 0.05% NASAL SPRAY 16 GM (FLONASE) NARES SCH (10:11)
[2019-07-24] MEDS: NYSTATIN 100,000 UNITS/GM TOPICAL PWD 15 GM TOP SCH (10:11)
[2019-07-24] MEDS ORDERED: POTASSIUM CHLORIDE 10 MEQ SR TABLET PO ONE (12:00)
[2019-07-24] MEDS: CHLORHEXIDINE GLUCONATE 0.12 % 15ML UDC (PERIDEX ORAL RINSE) XX SCH ×2 (13:48→16:00)
[2019-07-24 14:00] VITALS: BP 125/58
[2019-07-25] MEDS ORDERED: POTASSIUM CHLORIDE 10 MEQ SR TABLET PO SCH (09:00)
== END 2019-07-24 19:20 | disposition home or self-care (01) | DRG 57 ==
LOC: M PM&R 14:31
PROVIDERS: ADMIT Physical Medicine & Rehabilitation; ATTEND Physical Medicine & Rehabilitation
DX: I69.354 Hemiplegia and hemiparesis following cerebral infarction affecting left non-dominant side (principal); I69.398 Other sequelae of cerebral infarction; R26.89 Other abnormalities of gait and mobility; I11.0 Hypertensive heart disease with heart failure; K21.9 Gastro-esophageal reflux disease without esophagitis; K57.90 Diverticulosis of intestine, part unspecified, without perforation or abscess without bleeding; R00.1 Bradycardia, unspecified; R60.0 Localized edema; R05 Cough; I89.0 Lymphedema, not elsewhere classified; E53.8 Deficiency of other specified B group vitamins; I50.9 Heart failure, unspecified; R09.82 Postnasal drip; M54.5 Low back pain; E87.6 Hypokalemia; I87.2 Venous insufficiency (chronic) (peripheral); Z66 Do not resuscitate; Z85.3 Personal history of malignant neoplasm of breast; Z85.118 Personal history of other malignant neoplasm of bronchus and lung; Z74.09 Other reduced mobility; Z90.49 Acquired absence of other specified parts of digestive tract; Z96.642 Presence of left artificial hip joint; Z79.899 Other long term (current) drug therapy; Z88.1 Allergy status to other antibiotic agents; Z85.828 Personal history of other malignant neoplasm of skin; Z11.59 Encounter for screening for other viral diseases